=== PATIENT | male | born 1995 | race Caucasian/White ===

== ENCOUNTER 2020-05-27 15:30 | Outpatient (REF) | payer OTHER, SELFPAY | END 2020-05-27 15:31 | disposition home or self-care (01) | LOC: HO.LAB 15:30 | PROVIDERS: Visit Provider Internal Medicine | DX: Z20.822 Contact with and (suspected) exposure to COVID-19 (principal) | CPT/HCPCS: 36415; C9803; U0003; U0005 ==

== ENCOUNTER 2024-06-07 14:02 | Emergency (ER) | payer OTHER, SELFPAY ==
[2024-06-07 14:08] VITALS: BP 123/94; PULSE 110; RESP 18; TEMP 36.7; O2SAT 98; BMI 33.6
--- NOTE | 2024-06-07 14:20 | ED_ITS ---
HPI - General Adult General Chief complaint: GI Bleed Stated complaint: hemorrhoids rupture Time Seen by Provider: 06/07/24 16:45 Source: patient Mode of arrival: ambulatory Limitations: no limitations History of Present Illness ED Provider: Otoniel Hannon DO HPI narrative: 28-year-old male with no significant past medical or surgical history with the exception of hemorrhoids in the past presents to the ED for an evaluation of several days of intermittent bleeding per rectum with bowel movements and without bowel movements which improved yesterday but then worsened again today. He has had mild discomfort with moving his bowels but no severe pain. He has had some hard stools recently. He had diarrhea yesterday with some burning with it. He has not had any vomiting or nausea. He has not seen a colorectal surgeon. He has not had any trauma or sex with men. He describes that the bleeding is covering his underwear but is not continuing in gross amounts that he can quantify. It is bright red. He is not on blood thinners. Related Data Allergies Allergy/AdvReac Type Severity Reaction Status Date / Time No Known Allergies Allergy Verified 06/07/24 14:10 Review of Systems 2 Review of Systems: Yes all other systems are reviewed and are negative [facility] Social History Social History Smoked in Last 30 Days: No Advance Directives: No Advance Directives Information Provided: Yes Advance Directives on File: No Physical Exam ED Vital Signs: Vital Signs - 24 hr 06/07/24 14:08 06/07/24 16:47 Temperature 98.0 F 98.5 F Pulse Rate 110 H 61 Respiratory Rate 18 20 Blood Pressure 123/94 H 111/70 Pulse Oximetry 98 98 Oxygen Delivery Method Room Air Room Air BMI result Body Mass Index 33.6 Constitutional: ?Alert, oriented, speaking in full sentences HEENT: ?Normocephalic, atraumatic. Eyes: ?PERRL, EOMI Respiratory: no increased work of breathing GI: ?Soft, nondistended, nontender, rectal exam shows a small hemorrhoid located over the 8 o'clock position with no active bleeding. This is mildly painful. There is no bright red blood or melena noted her exam nor in the patient's briefs. Back: ?Normal range of motion, nontender Skin: ?No rash, no lesions Neuro: ?Alert and oriented to person, place and time, moves all 4 extremities, no focal deficits Psych: ?Calm, alert and cooperative, appropriate behavior Course Course Course Narrative: RME, this is a rapid medical exam performed by Edgar Juarez please refer to primary provider for complete H&P- 28-year-old male presents for evaluation of rectal bleeding which is bright red. He reports a history of hemorrhoids and believes 1 ?ruptured. ? Plan for labs and direct observation Medical Decision Making Medical Decision Making MDM Narrative: Patient presenting with signs and symptoms consistent with a currently nonbleeding, nonthrombosed external hemorrhoid. Unlikely to be internal hemorrhoid due to the discomfort on exam. Labs unremarkable, no anemia, no systemic symptoms. Discussed with the patient important to follow up with a primary care provider at possible colorectal surgeon if he has continued bleeding for further evaluation. Patient will administer preparation H at home for further care and return with any persistent bleeding. Lab Data 06/07/24 14:22 06/07/24 14:22 Labs: Lab Results 06/07/24 Range/Units 14:22 WBC 6.8 (4.8-10.8) X10*3/uL RBC 5.88 H (4.60-5.80) X10*6/uL Hgb 17.0 (14.0-18.0) g/dl Hct 50.0 (42.0-52.0) % MCV 85.0 (80.0-98.0) fL MCH 28.9 (27.0-33.0) pg MCHC 34.0 (31.0-36.0) g/dl RDW 12.5 (11.0-16.0) % Plt Count 284 (160-400) X10*3/uL MPV 10.1 (9.4-12.4) fL Immature Gran % (Auto) 0.3 (0.0-0.4) % Neut % (Auto) 56.0 (45-73) % Lymph % (Auto) 33.0 (20-40) % [place] % (Auto) 5.9 (2-11) % Eos % (Auto) 4.4 H (0-4) % Baso % (Auto) 0.4 (0-2) % Lymph # (Auto) 2.2 (1.2-4.9) X10*3/uL [place] # (Auto) 0.4 (0.1-1.2) X10*3/uL Eos # (Auto) 0.3 (0.0-0.4) X10*3/uL Baso # (Auto) 0.0 (0.0-0.2) X10*3/uL Abs Immat Gran (auto) 0.02 (0.00-0.03) X10*3/uL Absolute Neuts (auto) 3.8 (2.0-8.3) x10*3/uL Absolute Nucleated RBC 0.000 (0.0-0.012) X10*3/uL Nucleated RBC % (auto) 0.0 (0.0-0.2) /100WBC Sodium 140 (135-145) mmol/L Potassium 4.0 (3.3-5.1) mmol/L Chloride 111 H (96-108) mmol/L Carbon Dioxide 24 (22-29) mmol/L Anion Gap 9 L (12-20) BUN 17 H (9-16) mg/dL Creatinine 1.06 (0.5-1.4) mg/dL Estim Creat Clear Calc 140.8 Estimated GFR > 60 Random Glucose 87 (60-115) mg/dL Calcium 9.3 (8.4-10.2) mg/dL Total Bilirubin 0.7 (0.0-1.0) mg/dL AST 55 H (5-37) U/L ALT 42 H (0-40) U/L Alkaline Phosphatase 54 (39-117) U/L Total Protein 7.2 (6.5-8.0) g/dL Albumin 4.6 (3.5-5.0) g/dL Discharge Plan Discharge Clinical Impression: Hemorrhoids Qualifiers: Hemorrhoid type: unspecified Qualified Code(s): K64.9 - Unspecified hemorrhoids Patient Disposition: Home, Self-Care Instructions: Hemorrhoids (ED) Additional Instructions: Please follow up with a PCP and GI doc or colorectal surgeon if bleeding persists. Return with any concerns or profuse bleeding. Referrals: [facility] Family Medicine [Provider Group] Stand Alone Forms: Work/School Release Print Language: Romansh
[2024-06-07 14:27] LABS: MANUAL DIFF FLAG NO
[2024-06-07 14:28] LABS: Basophils Percent Auto 0.4 % (0-2); Eosinophils Absolute Auto 0.3 X10*3/uL (0.0-0.4); Eosinophils Percent Auto 4.4 % (0-4); Imm Gran Abs Auto 0.02 X10*3/uL (0.00-0.03); Imm Gran Pct Auto 0.3 % (0.0-0.4); Lymphocytes Absolute Auto 2.2 X10*3/uL (1.2-4.9); Mean Corpuscular Hemoglobin 28.9 pg (27.0-33.0); Mean Platelet Volume 10.1 fL (9.4-12.4); Monocytes Absolute Auto 0.4 X10*3/uL (0.1-1.2); Monocytes Percent Auto 5.9 % (2-11); Neutrophils Absolute Auto 3.8 x10*3/uL (2.0-8.3); Platelet Count 284 X10*3/uL (160-400); Red Blood Count 5.88 X10*6/uL (4.60-5.80); Red Cell Distribution Width 12.5 % (11.0-16.0); White Blood Count 6.8 X10*3/uL (4.8-10.8)
[2024-06-07 14:42] LABS: Alanine Aminotransferase 42 U/L (0-40); Albumin Level 4.6 g/dL (3.5-5.0); Alkaline Phosphatase 54 U/L (39-117); Anion Gap 9 (12-20); Aspartate Amino Transferase 55 U/L (5-37); Bilirubin Total 0.7 mg/dL (0.0-1.0); Blood Urea Nitrogen 17 mg/dL (9-16); Calcium 9.3 mg/dL (8.4-10.2); Carbon Dioxide 24 mmol/L (22-29); Chloride 111 mmol/L (96-108); Creatinine Clr Calc Pharmacy 140.8; Estimated Glomerular Filt Rate > 60; Glucose Random 87 mg/dL (60-115); Sodium 140 mmol/L (135-145); Total Protein 7.2 g/dL (6.5-8.0)
[2024-06-07 16:47] VITALS: BP 111/70; PULSE 61; RESP 20; TEMP 36.9; O2SAT 98
--- OUTSIDE RECORDS SUMMARY | 2024-06-07 17:39 | XMS_ITS | Clinical Summary ---
Author Organization [facility] Address [address] [place] [address] Phone Care Team Providers Care Sales Contracts Analyst Name Role Phone Unavailable Primary Care Provider Unavailabl e Allergies No known active allergies Medications albuterol HFA (PROAIR HFA) 108 (90 BASE) MCG/ACT inhaler 108 mcg as needed. Active amphetamine-dextro amphetamine XR 20 MG 24 hr capsuleIndications :ADHD (attention deficit hyperactivity disorder), combined type Take 1 capsule (20 mg total) by mouth every morning. 30 capsule 7 Active Active Problems Patient Care Coordination No te Formatting of this note migh t be different from the original. 01/14/18- [id number] letter sent Problem Noted Date Diagnosed Date Substance abuse 03/20/2016 Tourette's 01/08/2016 Anxiety 02/05/2015 Assessment & Plan (01/22/2017 8:37 AM EST): Has stopped taking sertraline, Feels better without it. It made him feel weird but I am not sure if that was because he stopped it and then started it. Can observe for now but I do have concerns that these symtpoms could return Allergic rhinitis 11/23/2014 Attention-deficit hyperactivity disorder, combin ed type 11/07/2014 Assessment & Plan (01/22/2017 8:37 AM EST): Doing well with current medication Mild intermittent asthma, uncomplicated 10/26/19 15 Sebaceous cyst 04/24/2013 Resolved Problems Problem Noted Date Diagnosed Date Resolved Date Depression 05/25/2016 01/22/2017 Immunizations Immunization Administration Dates Next Due DTaP 11/22/1998, 7,04/05/1995,02/15,1994 HPV Vaccine 9 Valent 03/20/2016,02/05/2015 HPV, Quadrivalent 01/20/2014 Hep B, ped/adol 08/02/1995,1994,1994 Hib (PRP-T) 01/31/1996, 6,02/15/1995,12/20 IPV 11/22/1998 Influenza, injectable, quadr ivalent, preservative free 03/20/2016,01/20/2014 Influenza, injectable, trivalent 11/25/2009 Influenza, intranasal, quadrivalent 02/05/2015 MMR 09/10/1999,01/31/1996 Meningococcal Conj (Menactra) MCV4P 01/20/2014,0 10/22/2006 OPV 04/05/1995,02/15/1995,1994 Td (adult) (MBL), 2 Lf tetan us toxoid, PF, adsorbed 03/20/2016 Tdap 10/22/2006 Varicella 05/31/1995 Social History Tobacco Use Types Packs/Day Years Used Date Smoking Tobacco: Never Assessed Sex and Gender Information Value Date Recorded Sex Assigned at Not on file Legal Sex Male 11:11 PM EST Gender Identity Not on file Sexual Orientation Not on file Last Filed Vital Signs Vital Sign Reading Time Taken Comments Blood Pressure 111/64 01/22/2017 8:06 AM EST Pulse 55 01/22/2017 8:06 AM EST Temperature 37 ??C (98.6 ??F) 01/13/2016 12:00 AM EST Respiratory Rate - - Oxygen Saturation 98% 02/19/2010 12:00 AM EST Inhaled Oxygen Concentration - - Weight 92.5 kg (204 lb) 01/22/2017 8:06 AM EST Height 185.4 cm (6' 1 ) 01/22/2017 8:06 AM EST Body Mass Index 26.91 01/22/2017 8:06 AM EST Plan of Treatment Health Maintenance Due Date Last Done Comments Hepatitis B Vaccines (3 of 3 - 3-dose series) 09/27/1995 08/02/1995, 1994, 1994 Varicella Vaccines (1 of 2 - 13+ 2-dose series) 03/05/2015 05/31/1995 Influenza Vaccines (#1) 2023 03/20/19 17, 02/05/2015, 01/20/2014, Additional history exists COVID-19 Vaccine ( - 2023- season) 2023 DTaP,Tdap,and Td Vaccines (8 - Td or Tdap) 03/20/2026 03/20/2016, 10/22/2006, 11/22/1998, Additional history exists HIB Vaccines Completed 01/31/1996, 06/1995, 02/15/1995, Additional history exists IPV Vaccines Completed 11/22/1998, 06/1995, 02/15/1995, Additional history exists MMR Vaccines Completed 09/10/1999, 01/31/1996 Meningococcal Vaccine Aged Out 01/20/2014, 007 No longer eligible based on patient's age to complete this topic HPV Vaccines Completed 03/20/2016, 09/2014, 01/20/2014 Hepatitis A Vaccines Aged Out No long er eligible based on patient's age to complete this topic Men B Vaccine Aged Out No longer elig ible based on patient's age to complete this topic Pneumococcal Vaccine Aged Out No long er eligible based on patient's age to complete this topic
--- OUTSIDE RECORDS SUMMARY | 2024-06-07 17:39 | XMS_ITS | Encounter Summary ---
Author Organization [facility] Address [address] [place] [id number] Phone Care Team Providers Care Boat Cleaner Name Role Phone Abdullahi Chase MD Primary Care Provider [phone] Encounter Details Date Type Department Care Team (Late st Contact Info) Description 10/07/2016 Conversion Encounter [facility] Pediatric[facility] - [address], [address] [place] [address] Abdullahi Chase MD [address] [place] [id number] Social History Tobacco Use Types Packs/Day Years Used Date Smoking Tobacco: Never Assessed Sex and Gender Information Value Date Recorded Sex Assigned at Not on file Legal Sex Male 11:11 PM EST Gender Identity Not on file Sexual Orientation Not on file documented as of this encounter Plan of Treatment Not on file documented as of this encounter Visit Diagnoses Not on filedocumented in this encounter Care Teams Boat Cleaner Relationship Specialty Start Date End Date Abdullahi Chase MD [address] [place] [address] PCP - General 04/21/16 09/15/20 documented as of this encounter
[2024-06-07 17:51] VITALS: BP 111/70; PULSE 61; RESP 20; TEMP 36.9; O2SAT 98
== END 2024-06-07 17:55 | disposition home or self-care (01) ==
PROVIDERS: Emergency Provider Emergency Medicine
DX: K64.9 Unspecified hemorrhoids (principal); K92.2 Gastrointestinal hemorrhage, unspecified; R19.7 Diarrhea, unspecified
CPT/HCPCS: 36415; 80053; 85025; 99283; 99284

== ENCOUNTER 2024-07-11 14:32 | Outpatient (AMB) | payer OTHER, SELFPAY ==
--- NOTE | 2024-07-11 14:52 | MHC.PC.OV ---
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 Prior PCP? - [facility] Last office visit/CPE/labs - About 5 years ago Acute issue(s) - He was evaluated at [facility] on 06/07/2024 for bright red blood rectal bleeding with and without defecation. Labs were reassuring. The source of bleeding was deemed likely internal hemorrhoids. He was advised to follow-up with PCP and Gastroenterology. He notes that his rectal bleeding completely subsided about a week ago. - Anxiety and depression. He notes that sometimes i get overwhelmed with myself because of life stressors including paying his bills and not having enough money for food and other things. He was feeling down last week for a few days. He was on zoloft between 2021 and 2022. He stopped the medications due to increased suicidality. He was followed by a therapist in high school. He denies history of psychiatric admissions. He denies active SI. He denies HI and AVH. He denies yulissa or hypomaina episodes. Past Medical History - Hypertension, asthma, GERD, headache, torn ACL, anxiety, depression, alcoholism Surgical History - None Family History - Dad: Hypertension, hypercholesterolemia, alcohol abuse - Mom: Asthma, anxiety - MGM: Breast cancer, thyroid cancer - MGF: Lung cancer, colon cancer Social History - Former smoker. Vapes nicotine multiple times daily, equivalent of 1 pack daily, and has been vaping for about 8 years, Drinks 1 beer and a glass of whiskey daily and 6-8 beers every other week with friends. Smoke/vap cannabis 3-4 times week - Has been making healthy dietary choices. Exercises routinely. Reports insomnia since he was 7 years old. Sleeps 3-4 hours nightly due to constant thoughts related to work, personal life, or that someone is breaking into his apartment. Unsure if he snores or not; he lives alone Health maintenance - Last eye exam was about 10 years ago - Last dental visit was 2 months ago - Last tetanus vaccine was in 2021. Record not currently available - Has not been vaccinated for the flu this season; declines vaccination [facility] Medical History (Updated 07/11/24 @ 16:11 by Junie Lo CNP) Alcoholism Depression Anxiety Headache History of gastroesophageal reflux (GERD) Torn ACL High blood pressure Asthma Surgical History (Updated 07/11/24 @ 15:05 by Windy Pope MA) S/P wisdom tooth extraction Family History (Updated 07/11/24 @ 15:09 by Windy Pope MA) Father Alcohol abuse High blood pressure High cholesterol Paternal Grandfather Alcohol abuse High blood pressure High cholesterol Mother Anxiety Asthma Sister Anxiety Maternal Grandmother Thyroid disorder Breast cancer Maternal Grandfather Colon cancer Lung cancer Social History (Updated 07/11/24 @ 15:00 by Windy Pope MA) Housing: Apartment Patient Tobacco Use Status: Never used Tobacco e-Cigarette/Vaping Use: Currently Using Second Hand Smoke Exposure: No Substance Use Type: Marijuana service: No Current occupational status: employed 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 1. Little interest or pleasure in doing things: more than half the days 2. Feeling down, depressed, or hopeless: more than half the days 3. Trouble falling or staying asleep, or sleeping too much: nearly every day 4. Feeling tired or having little energy: nearly every day 5. Poor appetite or overeating: nearly every day 6. Feeling bad about yourself - or that you are a failure or have let yourself or your family down: nearly every day 7. Trouble concentrating on things, such as reading the newspaper or watching television: nearly every day 8. Moving or speaking so slowly that other people could have noticed. Or the opposite - being so fidgety or restless that you have been moving around a lot more than usual: nearly every day 9. Thoughts that you would be better off or of hurting yourself in some way: more than half the days Total score: 24 Depression Screening Interpretation: Positive Depression Screening Done: Yes 37324 - PHQ-9 Billing: Yes Source: Developed by Drs. Du Simons, Aicha Anaya, Sandro Almanza and colleagues, with an educational cristobal from [employer]. Thrive Questionnaire Date Thrive assessed: 07/11/24 I am a: Patient What is your living situation today?: I have a steady place to live Within the past 12 months, did the food you bought not last and you didn't have the money to get more?: Sometimes True Within the past 12 months, did you worry whether your food would run out before you got money to buy more?: Often true Do you have trouble paying for medicines?: No Do you have trouble getting transportation to medical appointments?: No Do you have trouble paying your heating and electricity bill?: No Do you have trouble taking care of your child, family member or friend?: No Do you have trouble with day-to-day activities such as bathing, preparing meals, shopping, managing finances, etc.?: Yes Are you currently unemployed and looking for a job?: No Are you interested in more education?: Yes Please select the resources that you would like help with: None Currently or been in a relationship where the following occur: Controlled Financially and Controlled Emotionally THRIVE Score: 4 AUDIT C Alcohol Use Questionnaire (AUDIT-C) 1. How often do you have a drink containing alcohol?: 2-3 times a week 2. How many drinks containing alcohol do you have on a typical day when you are drinking?: 5 or 6 3. How often do you have six or more drinks on one occasion?: Weekly Total Score: 8 Score Reviewed/Action Taken: Yes GELY-7 AMB Questionnaire GELY-7 Date GELY - 7 assessed: 07/11/24 Feeling nervous, anxious, or on edge: 3 = Nearly every day Not being able to stop or control worryin = Nearly every day Worrying too much about different things: 3 = Nearly every day Trouble relaxin = Nearly every day Being so restless that it is hard to sit still: 3 = Nearly every day Becoming easily annoyed or irritable: 3 = Nearly every day Feeling afraid as if something awful might happen: 3 = Nearly every day Total GELY-7 score (0-4 normal; 5-9 mild; 10-14 moderate; 15-21 severe): 21 Source: Developed by Drs. Du Simons, Aicha Anaya, Sandro Almanza and colleagues, with an educational cristobal from [employer]. GELY-7 Assessment Billing GELY-7 Assessment Tool: GELY-7 Assessment 37488 Review of Systems Const Details: Denies chills, Denies fatigue, Denies fever(s), Denies headache(s) and Denies weakness HEENT Denies change in vision, Denies dizziness, Denies headache(s), Denies hearing loss, Denies nasal congestion, Denies sinus pain, Denies sinus pressure and Denies sore throat Card Denies chest pain, Denies lightheadedness, Denies dyspnea and Denies other (palpitations) Resp Denies cough, Denies dyspnea and Denies wheezing GI Denies abdominal pain, Denies melena, Denies hematochezia, Denies change in bowel habits, Denies dyspepsia and Denies nausea Denies hematuria and Denies dysuria Musc Denies abnormal gait, Denies myalgias, Denies arthralgias, Denies numbness and Denies tingling Skin/Breast Denies rash, Denies unusual bruising and Denies wounds Neuro Denies abnormal gait, Denies dizziness, Denies headache(s), Denies memory loss, Denies numbness, Denies Sensory deficit (Neuro), Denies tingling and Denies weakness Psych Reports anxiety, Reports depression and Denies memory loss Endo Denies cold intolerance, Denies fatigue, Denies heat intolerance, Denies polydipsia and Denies polyuria Bakari/Lymph Denies easy bleeding and Denies easy bruising Aller/Immun Denies wheezing Physical exam (Primary Care) Vital Signs: Last Vital Signs Temp 98.6 F 07/11/24 15: Pulse 80 07/11/24 15:01 Resp 16 07/11/24 15:01 BP 126/73 07/11/24 15:01 Pulse Ox 98 07/11/24 15:01 Oxygen Delivery Method Room Air 07/11/24 15:01 BMI result Body Mass Index 34.4 Tobacco/Smoking Status: Tobacco use Status Tobacco use date assessed 07/11/24 07/11/24 15:00 Patient Tobacco Use Status Never used Tobacco 07/11/24 15:00 e-Cigarette/Vaping Use Currently Using 07/11/24 15:00 PHQ-9: PHQ-9 Score PHQ-9: Total score 24 07/11/24 15:00 Depression Screening Interpretation: Positive Thrive Assessment: Date of Thrive Assessment Date Thrive assessed 07/11/24 07/11/24 15:00 Currently or been in a relationship where the following occur: Controlled Financially and Controlled Emotionally Const Other: General: no acute distress, well developed, alert and awake Nutritional Appearance: well nourished Orientation/consciousness: patient oriented x3 HENMT Head: Yes normocephalic and Yes atraumatic Ears: hearing grossly normal bilaterally and TM's normal bilaterally General nose exam: Normal external nose present and Normal nares present Mouth: Normal oral and palatal mucosa present and moist mucous membranes Teeth and gingiva: dentition normal Throat: Yes oropharynx normal Eyes Pupils: Equal, round and reactive pupils present and Pupil accommodation reflex normal EOM: EOMs intact bilaterally Neck Neck: Yes normal visual inspection, Yes no lymphadenopathy and Yes trachea midline Thyroid: Thyroid normal Carotids: no bruits Lymphatic: no lymphadenopathy noted Chest Chest palpation & inspection: normal inspection of the chest Resp Effort & Inspection: normal respiratory effort Auscultation: clear to auscultation bilaterally Cardio Rate: regular rate Rhythm: regular rhythm Heart sounds: S1 normal heart sound present, S2 normal heart sound present, no gallops, no murmurs and no rubs Bruits: no abdominal aortic bruits and no carotid bruits GI Palpation (GI): No Abdominal aortic bruit present, Soft to palpation, nontender, No hepatosplenomegaly present and No Rebound tenderness present Auscultation: normal bowel sounds General: Yes no CVA tenderness Back/Spine/Pelvis Back: no CVA tenderness Cervical Spine: cervical ROM normal and No Cervical spine tenderness Thoracic/Lumbar Spine: thoraco-lumbar ROM normal, No pain with thoraco-lumbar ROM, No thoracic spinal tenderness and No lumbar spinal tenderness Skin General: warm and dry. Normal skin color. Normal skin turgor Lesions: no lesions Rashes: no rashes Trauma: no lacerations or abrasions Wounds: no wounds Nails: normal Neuro General: patient oriented x3, gait normal and CN's II-XI intact bilaterally Cranial nerves: Yes Equal, round and reactive pupils present Cognition (Neuro): normal cognition Gait exam (Neuro): Normal gait present Motor exam (neuro): 5/5 motor strength present throughout Sensory Exam: No Sensory deficit (Neuro) Deep tendon reflexes (DTR's): Right patellar reflex intensity grade: 2+ and Left patellar reflex intensity grade: 2+ Extrem General: Yes normal to inspection, No edema and No calf tenderness Psych Appearance: grossly normal Affect: normal affect Attitude: cooperative Thought process: Normal thought process present Coding Level of Care Code New Pt Level 5 (53685) New Pt Prev Care 18-39yr(77166 Diagnoses Normal physical examination, routine Z00.00 Anxiety F41.9 Depression F32.A Insomnia G47.00 Obesity (BMI 30-39.9) E66.9 Engages in vaping Z72.89 Eye exam, routine Z01.00 Rectal bleeding K62.5 Colon cancer screening Z12.11 Laboratory tests ordered as part of a complete physical exam (CPE) Z00.00 Additional Codes GELY-7 Assessment Billing - GELY-7 Assessment Tool: GELY-7 Assessment 36825 ([id number]) PHQ-9 - 84524 - PHQ-9 Billing: Yes ([id number]) Assessment & Plan Assessment & Plan (1) Normal physical examination, routine: Code(s): Z00.00 - Encounter for general adult medical examination without abnormal findings Category: Medical Plan: No significant functional limitation noted. Healthy diet and routine exercise encouraged. Instructed on the health risks and complications of excessive alcohol intake and encouraged to cut down or stop. No more than 2 drinks daily of 5 weekly. Perform lab work and follow-up in 2 weeks for anxiety, depression, and labs review. Return sooner with symptoms or concerns. Verbalized understanding and agreed with the plan. (2) Anxiety: Code(s): F41.9 - Anxiety disorder, unspecified Category: Medical Plan: Anxiety and depression. He notes that sometimes i get overwhelmed with myself because of life stressors including paying his bills and not having enough money for food and other things. He was feeling down last week for a few days. He was on zoloft between 2021 and 2022. He stopped the medications due to increased suicidality. He was followed by a therapist in high school. He denies history of psychiatric admissions. He denies active SI. He denies HI and AVH. He denies yulissa or hypomaina episodes. Reports insomnia since he was 7 years old. Sleeps 3-4 hours nightly due to constant thoughts related to work, personal life, or that someone is breaking into his apartment. Unsure if he snores or not; he lives alone. PHQ-9 and GELY-7 scores revealed severe depression and anxiety. He is willing to trial bupropion. Bupropion 150 mg daily ordered to target depression and hydroxyzine 25 mg 3 times daily as needed ordered to take it anxiety. Sleep may improve once anxiety and depression are well controlled. Routine exercise encouraged. Follow-up in 2 weeks or sooner with worsening or new symptoms. Verbalized understanding and agreed with treatment plan. (3) Depression: Code(s): F32.A - Depression, unspecified Category: Medical Plan: Plan as above. (4) Insomnia: Code(s): G47.00 - Insomnia, unspecified Category: Medical Plan: Plan as above. (5) Obesity (BMI 30-39.9): Code(s): E66.9 - Obesity, unspecified Category: Medical Plan: He currently weighs 268 lb, BMI is 34.4. Declines referral to dietitian/clinical data management manager or weight management at this time and notes that he will continue with healthy lifestyle changes. Healthy diet and routine exercise encouraged. Follow-up as needed. Verbalized understanding and agreed with the plan. (6) Engages in vaping: Code(s): Z72.89 - Other problems related to lifestyle Category: Medical Plan: He vapes nicotine multiple times daily, equivalent of 1 pack daily, and has been vaping for about 8 years. Instructed on the health risks and complications of vaping and nicotine and cessation encouraged. He is willing to try nicotine treatment for nicotine cessation. Nicotine patch ordered. Advised to use as prescribed. Encouraged to stop or cut down on vaping nicotine at initiation of nicotine treatment. Follow-up as needed. Verbalized understanding and agreed with the plan. (7) Eye exam, routine: Code(s): Z01.00 - Encounter for examination of eyes and vision without abnormal findings Category: Medical Plan: Last eye exam was about 10 years ago. Referred to Ophthalmology for routine eye exam. (8) Rectal bleeding: Code(s): K62.5 - Hemorrhage of anus and rectum Category: Medical Plan: He was evaluated at [facility] on 06/07/2024 for bright red blood rectal bleeding with and without defecation. Labs were reassuring. The source of bleeding was deemed likely internal hemorrhoids. He was advised to follow-up with PCP and Gastroenterology. He notes that his rectal bleeding completely subsided about a week ago. His maternal grandfather has history of colon cancer. Referred to [facility] gastroenterology for a colonoscopy. (9) Colon cancer screening: Code(s): Z12.11 - Encounter for screening for malignant neoplasm of colon Category: Medical Plan: Plan as above. (10) Laboratory tests ordered as part of a complete physical exam (CPE): Code(s): Z00.00 - Encounter for general adult medical examination without abnormal findings Category: Medical Plan: Fasting labs ordered as part of a complete physical exam. Advised to fast for at least 10 hours before getting labs drawn. May drink water Verbalized understanding and agreed with treatment plan. Plan Total time for this visit is 75 mins. 50 minutes with patient and 25 minutes reviewing, coordinating plan of care, and documenting. Orders: Orders TSH reflex Free T4 Today Z00.00 - Encounter for general adult medical examination without abnormal findings Vitamin D 25-OH Total Today Z00.00 - Encounter for general adult medical examination without abnormal findings Microalbumin, Random (w Creat) Today Z00.00 - Encounter for general adult medical examination without abnormal findings Lipid Panel Today Z00.00 - Encounter for general adult medical examination without abnormal findings UA CC w/rflx Micro + Cult Today Z00.00 - Encounter for general adult medical examination without abnormal findings Liver Panel Today Z00.00 - Encounter for general adult medical examination without abnormal findings Complete Blood Count no Diff Today K62.5 - Hemorrhage of anus and rectum Referrals Ophthalmology Referral Z01.00 - Encounter for examination of eyes and vision without abnormal findings Gastroenterology Referral K62.5 - Hemorrhage of anus and rectum, Z12.11 - Encounter for screening for malignant neoplasm of colon Medications: New hydroxyzine HCl 25 mg PO TID PRN 90 tabs 3RF anxiety bupropion HCl XL 150 mg PO QAM 30 days 30 tabs 3RF nicotine 1 patch transdermal DAILY 6 weeks 42 ea 1RF
[2024-07-11 15:01] VITALS: BP 126/73; PULSE 80; RESP 16; TEMP 37; O2SAT 98; BMI 34.4
--- OUTSIDE RECORDS SUMMARY | 2024-07-11 15:42 | XMS_ITS | Clinical Summary ---
Author Organization [facility] Address [address] [place] [address] Phone Care Team Providers Care Anode Adjuster Name Role Phone Unavailable Primary Care Provider [...]
--- OUTSIDE RECORDS SUMMARY | 2024-07-11 15:42 | XMS_ITS | Encounter Summary ---
Author Organization [facility] Address [address] [place] [phone] Phone Care Team Providers Care Chief Media Officer Name Role Phone Abdullahi Chase MD Primary Care Provider [phone] Encounter Details Date Type Department Care Team (Late st Contact Info) Description 10/07/2016 Conversion Encounter [facility] - [address], [address] [place] [address] Abdullahi Chase MD [address] [place] [id number] Social History Tobacco Use Types Packs/Day Years [...] on filedocumented in this encounter Care Teams Chief Media Officer Relationship Specialty Start Date End Date Abdullahi Chase MD [address] [place] [address] PCP - General 04/21/16 09/15/20 documented as of this encounter
== END 2024-07-11 15:57 | disposition home or self-care (01) ==
LOC: HO.HMCFM 14:33
PROVIDERS: PCP Nurse Practitioner Family; Visit Provider Nurse Practitioner Family
DX: Z00.00 Encounter for general adult medical examination without abnormal findings (principal); F41.9 Anxiety disorder, unspecified; E66.9 Obesity, unspecified; Z68.34 Body mass index [BMI] 34.0-34.9, adult; F32.A Depression, unspecified; G47.00 Insomnia, unspecified; Z72.89 Other problems related to lifestyle; K62.5 Hemorrhage of anus and rectum; Z12.11 Encounter for screening for malignant neoplasm of colon

== ENCOUNTER → 2024-07-11 14:32 | Outpatient (BNVA) | payer OTHER, SELFPAY | PROVIDERS: Visit Provider Nurse Practitioner Family | DX: Z00.00 Encounter for general adult medical examination without abnormal findings (principal); F41.9 Anxiety disorder, unspecified; F32.A Depression, unspecified; G47.00 Insomnia, unspecified; E66.9 Obesity, unspecified; Z68.34 Body mass index [BMI] 34.0-34.9, adult; K62.5 Hemorrhage of anus and rectum; Z72.89 Other problems related to lifestyle | CPT/HCPCS: 96127 ==

== ENCOUNTER 2024-07-26 08:22 | Outpatient (REF) | payer OTHER, SELFPAY ==
--- OUTSIDE RECORDS SUMMARY | 2024-07-26 08:38 | XMS_ITS | Encounter Summary ---
Author Organization [facility] Address [address] [place] [id number] Phone Care Team Providers Care Mri Special Procedures Technologist Name Role Phone Abdullahi Chase MD Primary Care Provider [phone] Encounter Details Date Type Department Care Team (Late st Contact Info) Description 10/07/2016 Conversion Encounter [facility] - [address], [address] [place] [address] Abdullahi Chase MD [address] [place] [id number] Social History Tobacco Use Types Packs/Day Years [...] on filedocumented in this encounter Care Teams Mri Special Procedures Technologist Relationship Specialty Start Date End Date Abdullahi Chase MD [address] [place] [address] PCP - General 04/21/16 09/15/20 documented as of this encounter
[2024-07-26 11:18] LABS: Appearance Urine Clear; Color Urine Dark Yellow; Glucose Urine UA Negative (Negative); Leukocyte Esterase Urine Trace (Negative); Nitrite Urine Negative (Negative); PH 7.5 (5.0-9.0); Specific Gravity - Urine >= 1.030 (1.005-1.025); UMIC TRIGGER UACC YES; Urine Blood Negative (Negative); Urine Ketones Trace mg/dL (Negative); Urine Protein Trace mg/dL (Neg-Trace)
[2024-07-26 11:22] LABS: Bacteria Urine None Seen (None Seen); Hyaline Casts Urine 0-2 /LPF (0-2); RBC Urine 0-2 /HPF (0-2); Squamous Epithelial Cell Urine 0-2 /HPF (0-2); WBC Urine 0-5 /HPF (0-5)
[2024-07-26 11:27] LABS: Hematocrit 47.7 % (42.0-52.0); Hemoglobin 16.4 g/dl (14.0-18.0); Mean Corpuscular HGB Conc 34.4 g/dl (31.0-36.0); Mean Corpuscular Hemoglobin 29.4 pg (27.0-33.0); Mean Corpuscular Volume 85.5 fL (80.0-98.0); Mean Platelet Volume 10.3 fL (9.4-12.4); Platelet Count 285 X10*3/uL (160-400); Red Blood Count 5.58 X10*6/uL (4.60-5.80); Red Cell Distribution Width 12.4 % (11.0-16.0)
[2024-07-26 12:02] LABS: Alanine Aminotransferase 42 U/L (0-40); Albumin Level 4.6 g/dL (3.5-5.0); Alkaline Phosphatase 48 U/L (39-117); Aspartate Amino Transferase 38 U/L (5-37); Bilirubin Direct 0.4 mg/dL (0.0-0.5); Bilirubin Total 1.3 mg/dL (0.0-1.0); Cholesterol 193 mg/dL (<200); HDL Cholesterol 40 mg/dL (>40); LDL Cholesterol Calculated 116 mg/dL (<100); TSH reflex Free T4 1.89 uIU/mL (0.32-4.0); Triglycerides 189 mg/dL (<150); Vitamin D 25-OH Total 29.5 ng/mL (>30)
[2024-07-26 12:30] LABS: Creatinine Urine 404.16 mg/dL; Microalbum/Creatinine Ratio Ur 5.1 ug/mg cr (<30)
== END 2024-07-26 08:23 | disposition home or self-care (01) ==
LOC: HO.WFDLDS 08:22
PROVIDERS: Visit Provider Nurse Practitioner Family
DX: Z00.00 Encounter for general adult medical examination without abnormal findings (principal); K62.5 Hemorrhage of anus and rectum; Z13.6 Encounter for screening for cardiovascular disorders
CPT/HCPCS: 36415; 80061; 80076; 81001; 82043; 82306; 82570; 84443; 85027

== ENCOUNTER 2024-07-31 08:59 | Outpatient (AMB) | payer OTHER, SELFPAY ==
--- NOTE | 2024-07-31 09:00 | A.OFFPC_ITS ---
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: No Allergies No Known Allergies Allergy (Verified 07/31/24 09:12) Medication List - Last Reconciled 07/31/24 by Junie Lo CNP bupropion HCl XL 150 mg PO QAM 30 days hydroxyzine HCl 25 mg PO TID PRN nicotine 1 patch transdermal DAILY 6 weeks Tobacco use date assessed: 07/31/24 Dental Screening Dental Screen Date: 07/31/24 Did you have a dental visit in the last 12 months?: Yes Did you have a dental problem in the last 6 months where you did not have access to dental care?: No Was dental information given to patient?: Patient has dentist HPI HPI Comments History of Present Illness Details 28-year-old male presents for anxiety an d review of recent lab results. He admits to taking his medications as prescribed without adverse reactions. He does not take hydroxyzine regularly. Reports increased anxiety and depressive symptoms which he attributes to stressors from recent increase work demands. He has passive SI and notes that he would not be so stressed if he were not alive. He denies SI/HI contracts for safety. He generally makes healthy dietary choices. He has not exercise in the past 2 weeks. He cut down on drinking 2 weeks ago and has been drinking 2-3 beers 2 days weekly. He recently stopped vaping after using nicotine pouch. He did not use the nicotine patch ordered due to history of agitation on the patch. [facility] Medical History (Updated 07/31/24 @ 09:40 by Junie Lo CNP) Alcoholism Depression Anxiety Headache History of gastroesophageal reflux (GERD) Torn ACL High blood pressure Asthma Surgical History (Updated 07/11/24 @ 15:05 by Windy Pope MA) S/P wisdom tooth extraction Family History (Updated 07/11/24 @ 15:09 by Windy Pope MA) Father Alcohol abuse High blood pressure High cholesterol Paternal Grandfather Alcohol abuse High blood pressure High cholesterol Mother Anxiety Asthma Sister Anxiety Maternal Grandmother Thyroid disorder Breast cancer Maternal Grandfather Colon cancer Lung cancer Social History (Updated 07/11/24 @ 15:00 by Windy Pope MA) Housing: Apartment Patient Tobacco Use Status: Former Tobacco user Tobacco use type: Smokeless Tobacco e-Cigarette/Vaping Use: Currently Using Second Hand Smoke Exposure: No Substance Use Type: Marijuana service: No Current occupational status: employed 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 1. Little interest or pleasure in doing things: more than half the days 2. Feeling down, depressed, or hopeless: more than half the days 3. Trouble falling or staying asleep, or sleeping too much: nearly every day 4. Feeling tired or having little energy: several days 5. Poor appetite or overeating: more than half the days 6. Feeling bad about yourself - or that you are a failure or have let yourself or your family down: more than half the days 7. Trouble concentrating on things, such as reading the newspaper or watching television: more than half the days 8. Moving or speaking so slowly that other people could have noticed. Or the opposite - being so fidgety or restless that you have been moving around a lot more than usual: not at all 9. Thoughts that you would be better off or of hurting yourself in some way: more than half the days Total score: 16 Depression Screening Interpretation: Positive Depression Screening Follow-up: Ex isting condition and In treatment Depression Screening Done: Yes 62398 - PHQ-9 Billing: Yes Source: Developed by Drs. Du Simons, Aicha Anaya, Sandro Almanza and colleagues, with an educational cristobal from [employer] ([employer]). Thrive Questionnaire Date Thrive assessed: 07/31/24 I am a: Patient What is your living situation today?: I have a steady place to live Within the past 12 months, did the food you bought not last and you didn't have the money to get more?: Sometimes True Within the past 12 months, did you worry whether your food would run out before you got money to buy more?: Often true Do you have trouble paying for medicines?: No Do you have trouble getting transportation to medical appointments?: No Do you have trouble paying your heating and electricity bill?: No Do you have trouble taking care of your child, family member or friend?: No Do you have trouble with day-to-day activities such as bathing, preparing meals, shopping, managing finances, etc.?: Yes Are you currently unemployed and looking for a job?: No Are you interested in more education?: Yes Please select the resources that you would like help with: None THRIVE Score: 2 AUDIT C Alcohol Use Questionnaire (AUDIT-C) 1. How often do you have a drink containing alcohol?: 2-3 times a week 2. How many drinks containing alcohol do you have on a typical day when you are drinking?: 3 or 4 3. How often do you have six or more drinks on one occasion?: Never Total Score: 4 Score Reviewed/Action Taken: Yes GELY-7 AMB Questionnaire GELY-7 Date GELY - 7 assessed: 07/31/24 Feeling nervous, anxious, or on edge: 2 = More than half the days Not being able to stop or control worryin = Nearly every day Worrying too much about different things: 2 = More than half the days Trouble relaxin = Nearly every day Being so restless that it is hard to sit still: 1 = Several days Becoming easily annoyed or irritable: 1 = Several days Feeling afraid as if something awful might happen: 0 = Not at all Total GELY-7 score (0-4 normal; 5-9 mild; 10-14 moderate; 15-21 severe): 12 Source: Developed by Drs. Du Simons, Aicha Anaya, Sandro Almanza and colleagues, with an educational cristobal from [employer] ([employer]). GELY-7 Assessment Billing GELY-7 Assessment Tool: GELY-7 Assessment 26986 Review of Systems Const Details: Const Denies chills, Denies fatigue, Denies fever(s), Denies headache(s) and Denies weakness ENT Denies dizziness and Denies headache(s) Card Denies chest pain, Denies lightheadedness, Denies dyspnea and Denies other (Palpitations) Resp Denies cough, Denies dyspnea, Denies wheezing and Denies other ( shortness of breath) GI Denies abdominal pain, Denies melena, Denies hematochezia, Denies change in bowel habits, Denies dyspepsia and Denies nausea Denies hematuria and Denies dysuria Musc Denies abnormal gait, Denies myalgias, Denies arthralgias, Denies numbness and Denies tingling Skin/Breast Denies rash, Denies unusual bruising and Denies wounds Neuro Denies abnormal gait, Denies dizziness, Denies headache(s), Denies memory loss, Denies numbness, Denies Sensory deficit (Neuro), Denies tingling and Denies weakness Psych Reports anxiety, Reports depression, Denies memory loss Endo Denies cold intolerance, Denies fatigue, Denies heat intolerance, Denies polydipsia and Denies polyuria Aller/Immun Denies wheezing Physical exam (Primary Care) Vital Signs: Last Vital Signs Temp 97.9 F 07/31/24 09:04 Pulse 70 07/31/24 09:04 Resp 16 07/31/24 09:04 BP 126/77 07/31/24 09:04 Pulse Ox 98 07/31/24 09:04 Oxygen Delivery Method Room Air 07/31/24 09:04 BMI result Body Mass Index 34.6 Tobacco/Smoking Status: Tobacco use Status Tobacco use date assessed 07/31/24 07/31/24 09:09 Patient Tobacco Use Status Never used Tobacco 07/31/24 09:23 Tobacco use type Smokeless Tobacco 07/31/24 09:23 e-Cigarette/Vaping Use Currently Using 07/31/24 09:03 PHQ-9: PHQ-9 Score PHQ-9: Total score 16 07/31/24 09:23 Depression Screening Interpretation: Positive Depression Screening Follow-up: Existing condition and In treatment Thrive Assessment: Date of Thrive Assessment Date Thrive assessed 07/31/24 07/31/24 09:09 Const Other: General: no acute distress and well developed Nutritional Appearance: well nourished Orientation/consciousness: patient oriented x3 HENMT Head: Yes normocephalic and Yes atraumatic Eyes General: appearance normal, both eyes and all related structures Pupils: Equal, round and reactive pupils present EOM: EOMs intact bilaterally Resp Effort & Inspection: normal respiratory effort Auscultation: clear to auscultation bilaterally Cardio Rate: regular rate Rhythm: regular rhythm Heart sounds: S1 normal heart sound present, S2 normal heart sound present, no gallops, no murmurs and no rubs GI Palpation (GI): No Abdominal aortic bruit present, Soft to palpation, nontender, No hepatosplenomegaly present and No Rebound tenderness present Auscultation: normal bowel sounds General: Yes no CVA tenderness Back/Spine/Pelvis Back: no CVA tenderness Cervical Spine: cervical ROM normal and No Cervical spine tenderness Thoracic/Lumbar Spine: thoraco-lumbar ROM normal, No pain with thoraco-lumbar ROM, No thoracic spinal tenderness and No lumbar spinal tenderness Extrem General: Yes normal to inspection, No edema and No calf tenderness Skin General: warm and dry. Normal skin color. Normal skin turgor Neuro General: patient oriented x3, gait normal and no focal neuro deficit Cranial nerves: Yes Equal, round and reactive pupils present Cognition (Neuro): normal cognition Gait exam (Neuro): Normal gait present Sensory Exam: No Sensory deficit (Neuro) Psych Appearance: grossly normal Affect: normal affect Attitude: cooperative Thought process: Normal thought process present Coding Level of Care Code Est Pt Level 4 (40624) Diagnoses Anxiety F41.9 Depression F32.A Hyperlipidemia E78.5 Transaminitis R74.01 Hyperbilirubinemia E80.6 Vitamin D deficiency E55.9 Engages in vaping Z72.89 Additional Codes GELY-7 Assessment Billing - GELY-7 Assessment Tool: GELY-7 Assessment 62573 ([id number]) PHQ-9 - 53801 - PHQ-9 Billing: Yes ([id number]) Assessment & Plan Assessment & Plan (1) Anxiety: Code(s): F41.9 - Anxiety disorder, unspecified Category: Medical Plan: Reports increased anxiety and depressive symptoms which he attributes to stressors from recent increase work demands. He has passive SI and notes that he would not be so stressed if he were not alive. He denies SI/HI contracts for safety. PHQ-9 and GELY-7 scores revealed moderately severe depression and moderate anxiety respectively. Will increase bupropion 300 mg daily; advised to take as prescribed. Continue to take hydroxyzine as prescribed. Routine exercise encouraged. Follow-up in 2 weeks or sooner with symptoms or concerns. Verbalized understanding and agreed with treatment plan. (2) Depression: Code(s): F32.A - Depression, unspecified Category: Medical Plan: Plan as above. (3) Hyperlipidemia: Code(s): E78.5 - Hyperlipidemia, unspecified Category: Medical Plan: Recent triglycerides and LDL levels are elevated, 189 and 116 respectively, HDL is slightly low, 40. Likely related to poor diet or excessive alcohol intake. Healthy diet and routine exercise encouraged. Advised to cut down or avoid alcohol intake. No more than 2 drinks daily or 5 weekly. Fast for 10-12 hours, may drink water, and perform lipid panel blood work 2-3 days before next visit. Follow-up in 2 months. Verbalized understanding and agreed with the plan. (4) Transaminitis: Code(s): R74.01 - Elevation of levels of liver transaminase levels Category: Medical Plan: Recent AST and ALT levels a slightly elevated, 38 and 42 respectively. Likely related to poor diet or excessive alcohol intake. Plan as above. Will recheck panel in 2 months. (5) Hyperbilirubinemia: Code(s): E80.6 - Other disorders of bilirubin metabolism Category: Medical Plan: Recent bilirubin level is slightly elevated, 1.3. Likely related to alcoholic or nonalcoholic fatty liver disease. Plan as above. (6) Vitamin D deficiency: Code(s): E55.9 - Vitamin D deficiency, unspecified Category: Medical Plan: Recent vitamin-D level slightly low, 29.5. Vitamin D3 25 mcg daily ordered; advised to take as prescribed. Informed that the sun is a good source of vitamin-D. Will recheck vitamin-D level in 2 months. Verbalized understanding and agreed with the plan. (7) Engages in vaping: Code(s): Z72.89 - Other problems related to lifestyle Category: Medical Plan: He recently stopped vaping after using nicotine pouch. He did not use the nicotine patch ordered due to history of agitation on the patch. Encouraged to continue to avoid vaping. Orders: Orders Lipid Panel 2 Months E80.6 - Other disorders of bilirubin metabolism Liver Panel 2 Months E80.6 - Other disorders of bilirubin metabolism, R74.01 - Elevation of levels of liver transaminase levels Medications: New cholecalciferol (vitamin D3) (Vitamin D3) 25 mcg PO DAILY 90 days 90 tabs 3RF bupropion HCl XL 300 mg PO QAM 30 days 30 tabs 3RF Discontinued bupropion HCl XL Discontinued Reason: Doctor's Order 150 mg PO QAM 30 days 30 tabs 3RF
[2024-07-31 09:04] VITALS: BP 126/77; PULSE 70; RESP 16; TEMP 36.6; O2SAT 98; BMI 34.6
--- OUTSIDE RECORDS SUMMARY | 2024-07-31 09:29 | XMS_ITS | Encounter Summary ---
Author Organization [facility] Address [address] [place] [id number] Phone Care Team Providers Care Water Pumper Name Role Phone Abdullahi Chase MD Primary Care Provider [phone] Encounter Details Date Type Department Care Team (Late st Contact Info) Description 10/07/2016 Conversion Encounter [facility] - [address], [address] [place] [address] Abdullahi Chase MD [address] [place] [id number] Social History Tobacco Use Types Packs/Day Years [...] on filedocumented in this encounter Care Teams Water Pumper Relationship Specialty Start Date End Date Abdullahi Chase MD [address] [place] [address] PCP - General 04/21/16 09/15/20 documented as of this encounter
== END 2024-07-31 09:40 | disposition home or self-care (01) ==
LOC: HO.HMCFM 09:00
PROVIDERS: PCP Nurse Practitioner Family; Visit Provider Nurse Practitioner Family
DX: F41.9 Anxiety disorder, unspecified (principal); F32.A Depression, unspecified; E78.5 Hyperlipidemia, unspecified; R74.01 Elevation of levels of liver transaminase levels; E80.6 Other disorders of bilirubin metabolism; E55.9 Vitamin D deficiency, unspecified; Z72.89 Other problems related to lifestyle

== ENCOUNTER → 2024-07-31 08:59 | Outpatient (BNVA) | payer OTHER, SELFPAY | PROVIDERS: PCP Nurse Practitioner Family; Visit Provider Nurse Practitioner Family | DX: F41.9 Anxiety disorder, unspecified (principal); F32.A Depression, unspecified; E78.5 Hyperlipidemia, unspecified; R74.01 Elevation of levels of liver transaminase levels; E80.6 Other disorders of bilirubin metabolism; E55.9 Vitamin D deficiency, unspecified; Z72.89 Other problems related to lifestyle | CPT/HCPCS: 96127 ==

== ENCOUNTER 2024-08-21 13:24 | Outpatient (AMB) | payer OTHER, SELFPAY ==
--- NOTE | 2024-08-21 13:26 | MHC.PC.OV ---
Vital Signs 08/21/24 13:31 Height 6 ft 2 in Weight 270 lb BMI 34.7 BP 124/70 Blood Pressure Location Lt brachial Position Sitting Respiration 16 Pulse 73 Pulse Source Pulse Oximeter Temp 98.5 F Temp Source Oral Pulse Oximetry (%) 99 Oxygen Delivery Method Room Air Intake Visit Reasons: 2 wks anxiety, depression Intake Note: patient here for 2 wks follow up on anxiety and depression Quantity Surveyor Required: No Allergies No Known Allergies Allergy (Verified 08/21/24 13:43) Medication List - Last Reconciled 08/21/24 by Junie Lo CNP bupropion HCl XL 300 mg PO QAM 30 days cholecalciferol (vitamin D3) (Vitamin D3) 25 mcg PO DAILY 90 days hydroxyzine HCl 25 mg PO TID PRN Tobacco use date assessed: 08/21/24 Dental Screening Dental Screen Date: 08/21/24 Did you have a dental visit in the last 12 months?: Yes Did you have a dental problem in the last 6 months where you did not have access to dental care?: No Was dental information given to patient?: Patient has dentist HPI HPI Comments History of Present Illness Details 28-year-old male presents for anxiety and depression follow-up. He admits to taking his medications as prescribed without adverse reactions. He notes that his mood is better but has not improved much since his last visit. He is anxious about what is currently going around the world and reports from the news. He does not want WWIII to happened. Regarding PHQ-9 questionnaire, he notes that I won't feel this way if i wasn't alive. He denies SI or plan of committing suicide. He denies HI/AH/VH. He has been reading a book. He has not been able to exercise lately due to demands from his employer. He quit using nicotine including pouches 3 weeks ago. [facility] Medical History (Updated 07/31/24 @ 09:40 by Junie Lo CNP) Alcoholism Depression Anxiety Headache History of gastroesophageal reflux (GERD) Torn ACL High blood pressure Asthma Surgical History (Updated 07/11/24 @ 15:05 by Windy Pope MA) S/P wisdom tooth extraction Family History (Updated 07/11/24 @ 15:09 by Windy Pope MA) Father Alcohol abuse High blood pressure High cholesterol Paternal Grandfather Alcohol abuse High blood pressure High cholesterol Mother Anxiety Asthma Sister Anxiety Maternal Grandmother Thyroid disorder Breast cancer Maternal Grandfather Colon cancer Lung cancer Social History (Updated 07/11/24 @ 15:00 by Windy Pope MA) Housing: Apartment Patient Tobacco Use Status: Former Tobacco user Tobacco use type: Smokeless Tobacco e-Cigarette/Vaping Use: Currently Using Second Hand Smoke Exposure: No Substance Use Type: Marijuana service: No Current occupational status: employed 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 1. Little interest or pleasure in doing things: several days 2. Feeling down, depressed, or hopeless: more than half the days 3. Trouble falling or staying asleep, or sleeping too much: more than half the days 4. Feeling tired or having little energy: more than half the days 5. Poor appetite or overeating: nearly every day 6. Feeling bad about yourself - or that you are a failure or have let yourself or your family down: more than half the days 7. Trouble concentrating on things, such as reading the newspaper or watching television: several days 8. Moving or speaking so slowly that other people could have noticed. Or the opposite - being so fidgety or restless that you have been moving around a lot more than usual: not at all 9. Thoughts that you would be better off or of hurting yourself in some way: several days Total score: 14 Depression Screening Interpretation: Positive Depression Screening Follow-up: Existing condition and In treatment Depression Screening Done: Yes 60974 - PHQ-9 Billing: Yes Source: Developed by Drs. Du Simons, Aicha Anaya, Sandro Almanza and colleagues, with an educational cristobal from [employer]. Thrive Questionnaire Date Thrive assessed: 07/11/24 I am a: Patient What is your living situation today?: I have a steady place to live Within the past 12 months, did the food you bought not last and you didn't have the money to get more?: Sometimes True Within the past 12 months, did you worry whether your food would run out before you got money to buy more?: Often true Do you have trouble paying for medicines?: No Do you have trouble getting transportation to medical appointments?: No Do you have trouble paying your heating and electricity bill?: No Do you have trouble taking care of your child, family member or friend?: No Do you have trouble with day-to-day activities such as bathing, preparing meals, shopping, managing finances, etc.?: Yes Are you currently unemployed and looking for a job?: No Are you interested in more education?: Yes Please select the resources that you would like help with: None THRIVE Score: 2 GELY-7 AMB Questionnaire GELY-7 Date GELY - 7 assessed: 08/21/24 Feeling nervous, anxious, or on edge: 1 = Several days Not being able to stop or control worryin = More than half the days Worrying too much about different things: 2 = More than half the days Trouble relaxin = More than half the days Being so restless that it is hard to sit still: 1 = Several days Becoming easily annoyed or irritable: 2 = More than half the days Feeling afraid as if something awful might happen: 2 = More than half the days Total GELY-7 score (0-4 normal; 5-9 mild; 10-14 moderate; 15-21 severe): 12 Source: Developed by Drs. Du Simons, Aicha Anaya, Sandro Almanza and colleagues, with an educational cristobal from [employer]. GELY-7 Assessment Billing GELY-7 Assessment Tool: GELY-7 Assessment 51666 Review of Systems Const Details: Const Denies chills, Denies fatigue, Denies fever(s), Denies headache(s) and Denies weakness ENT Denies dizziness and Denies headache(s) Card Denies chest pain, Denies lightheadedness, Denies dyspnea and Denies other (Palpitations) Resp Denies cough, Denies dyspnea, Denies wheezing and Denies other ( shortness of breath) GI Denies abdominal pain, Denies melena, Denies hematochezia, Denies change in bowel habits, Denies dyspepsia and Denies nausea Denies hematuria and Denies dysuria Musc Denies abnormal gait, Denies myalgias, Denies arthralgias, Denies numbness and Denies tingling Skin/Breast Denies rash, Denies unusual bruising and Denies wounds Neuro Denies abnormal gait, Denies dizziness, Denies headache(s), Denies memory loss, Denies numbness, Denies Sensory deficit (Neuro), Denies tingling and Denies weakness Psych Reports anxiety, Reports depression, Denies memory loss Endo Denies cold intolerance, Denies fatigue, Denies heat intolerance, Denies polydipsia and Denies polyuria Aller/Immun Denies wheezing Physical exam (Primary Care) Vital Signs: Last Vital Signs Temp 98.5 F 08/21/24 13:31 Pulse 73 08/21/24 13:31 Resp 16 08/21/24 13:31 BP 124/70 08/21/24 13:31 Pulse Ox 99 08/21/24 13:31 Oxygen Delivery Method Room Air 08/21/24 13:31 BMI result Body Mass Index 34.7 Tobacco/Smoking Status: Tobacco use Status Tobacco use date assessed 08/21/24 08/21/24 13:35 Patient Tobacco Use Status Former Tobacco user 08/21/24 13:29 Tobacco use type Smokeless Tobacco 08/21/24 13:29 e-Cigarette/Vaping Use Currently Using 08/21/24 13:29 PHQ-9: PHQ-9 Score PHQ-9: Total score 14 08/21/24 13:35 Depression Screening Interpretation: Positive Depression Screening Follow-up: Existing condition and In treatment Thrive Assessment: Date of Thrive Assessment Date Thrive assessed 07/11/24 08/21/24 13:29 Const Other: General: no acute distress and well developed Nutritional Appearance: well nourished Orientation/consciousness: patient oriented x3 HENMT Head: Yes normocephalic and Yes atraumatic Eyes General: appearance normal, both eyes and all related structures Pupils: Equal, round and reactive pupils present EOM: EOMs intact bilaterally Resp Effort & Inspection: normal respiratory effort Auscultation: clear to auscultation bilaterally Cardio Rate: regular rate Rhythm: regular rhythm Heart sounds: S1 normal heart sound present, S2 normal heart sound present, no gallops, no murmurs and no rubs GI Palpation (GI): No Abdominal aortic bruit present, Soft to palpation, nontender, No hepatosplenomegaly present and No Rebound tenderness present Auscultation: normal bowel sounds General: Yes no CVA tenderness Back/Spine/Pelvis Back: no CVA tenderness Cervical Spine: cervical ROM normal and No Cervical spine tenderness Thoracic/Lumbar Spine: thoraco-lumbar ROM normal, No pain with thoraco-lumbar ROM, No thoracic spinal tenderness and No lumbar spinal tenderness Extrem General: Yes normal to inspection, No edema and No calf tenderness Skin General: warm and dry. Normal skin color. Normal skin turgor Neuro General: patient oriented x3, gait normal and no focal neuro deficit Cranial nerves: Yes Equal, round and reactive pupils present Cognition (Neuro): normal cognition Gait exam (Neuro): Normal gait present Sensory Exam: No Sensory deficit (Neuro) Psych Appearance: grossly normal Affect: normal affect Attitude: cooperative Thought process: Normal thought process present Coding Level of Care Code Est Pt Level 3 (48063) Diagnoses Anxiety F41.9 Depression F32.A Additional Codes GELY-7 Assessment Billing - GELY-7 Assessment Tool: GELY-7 Assessment 69253 ([id number]) PHQ-9 - 85970 - PHQ-9 Billing: Yes ([id number]) Assessment & Plan Assessment & Plan (1) Anxiety: Code(s): F41.9 - Anxiety disorder, unspecified Category: Medical Plan: He notes that his mood is better but has not improved much since his last visit. He is anxious about what is currently going around the world and reports from the news. He does not want WWIII to happened. Regarding PHQ-9 questionnaire, he notes that I won't feel this way if i wasn't alive. He denies SI or plan of committing suicide. He denies HI/AH/VH. He has been reading a book. He has not been able to exercise lately due to demands from his employer. PHQ-9 and GELY-7 scores revealed moderate depression and anxiety. Continue current treatment regimen. Routine exercise encouraged. Perform fasting blood work a few days before next visit. Follow-up in 5 weeks or sooner with worsening or new symptoms. Verbalized understanding and agreed with the plan. (2) Depression: Code(s): F32.A - Depression, unspecified Category: Medical Plan: Plan as above.
[2024-08-21 13:31] VITALS: BP 124/70; PULSE 73; RESP 16; TEMP 36.9; O2SAT 99; BMI 34.7
--- OUTSIDE RECORDS SUMMARY | 2024-08-21 14:47 | XMS_ITS | Encounter Summary ---
Author Organization [facility] Address [address] [place] [phone] Phone Care Team Providers Care Advertising Director Name Role Phone Abdullahi Chase MD Primary Care Provider [phone] Encounter Details Date Type Department Care Team (Late st Contact Info) Description 10/07/2016 Conversion Encounter [facility] - [address], [address] [place] [address] Abdullahi Chase MD [address] [place] [id number] Social History Tobacco Use Types Packs/Day Years [...] on filedocumented in this encounter Care Teams Advertising Director Relationship Specialty Start Date End Date Abdullahi Chase MD [address] [place] [address] PCP - General 04/21/16 09/15/20 documented as of this encounter
== END 2024-08-21 13:57 | disposition home or self-care (01) ==
LOC: HO.HMCFM 13:25
PROVIDERS: PCP Nurse Practitioner Family; Visit Provider Nurse Practitioner Family
DX: F41.9 Anxiety disorder, unspecified (principal); F32.A Depression, unspecified

== ENCOUNTER → 2024-08-21 13:24 | Outpatient (BNVA) | payer OTHER, SELFPAY | PROVIDERS: PCP Nurse Practitioner Family; Visit Provider Nurse Practitioner Family | DX: F41.9 Anxiety disorder, unspecified (principal); F32.A Depression, unspecified | CPT/HCPCS: 96127 ==

== ENCOUNTER 2024-09-22 08:55 | Outpatient (REF) | payer OTHER, SELFPAY ==
--- OUTSIDE RECORDS SUMMARY | 2024-09-22 09:14 | XMS_ITS | Clinical Summary ---
Author Organization [facility] Address [address] [place] [phone] Phone Care Team Providers Care Employee Benefits Manager Name Role Phone Pcp, Unknown Primary Care Provider Unavailabl e Allergies No known active allergies Medications No known medications Active Problems No known active problems Social History Tobacco Use Types Packs/Day Years Used Date Smoking Tobacco: Every Day Smokeless Tobacco: Never Comments:Per patient 15 ciga rrettes per day Alcohol Use Standard Drinks/Week Comments Yes 0 (1 standard drink = 0.6 oz pur e alcohol) Education Answer Date Recorded Are you interested in more education? Not on leonard e 06/26/2022 Are you concerned about learning? Not on file 06/26/2022 No 06/26/2022 No 06/26/2022 Digital Access Answer Date Recorded No 07/24/2022 No 07/24/2022 No 07/24/2022 Reliable internet access at home? Not on file 07/24/2022 Device with a working camera? Not on file Sex and Gender Information Value Date Recorded Sex Assigned at Male 06/14/2018 9:14 PM EDT Legal Sex Male 8:52 PM EDT Gender Identity Male 06/14/2018 9:14 PM EDT Sexual Orientation Not on file Last Filed Vital Signs Vital Sign Reading Time Taken Comments Blood Pressure 116/77 02/01/2022 4:43 PM EST Pulse 79 02/01/2022 4:43 PM EST Temperature 36.8 C (98.2 F) 02/01/2022 2:50 PM EST Respiratory Rate 18 02/01/2022 4:43 PM EST Oxygen Saturation 99% 02/01/2022 4:43 PM EST Inhaled Oxygen Concentration - - Weight 113.4 kg (250 lb) 02/01/2022 2:50 PM EST Height 188 cm (6' 2 ) 02/01/2022 2:50 PM EST Body Mass Index 32.1 02/01/2022 2:50 PM EST Plan of Treatment Health Maintenance Due Date Last Done Comments DEPRESSION SCREENING 2006 SMOKING Hx and SMOKELESS TOBACCO SCREENING 10/20/2007 HEPATITIS C SCREENING 2012 HIV ONE-TIME SCREENING (18-65 YEARS) 2012 PNEUMOCOCCAL VACCINES (0-49 years) (1 of 2 - PCV) 2013 COVID-19 VACCINE ( - 2023- season) 2023 06/20/2020, 05/30/2020 Adult Td,Tdap Booster 03/20/2026 03/20/2016, 007 HIB VACCINES Completed 01/31/1996, 06/1995, 02/15/1995, Additional history exists MENINGOCOCCAL VACCINES (ACWY) Aged Out 01/20/2014, 10/22/2006 No longer eligibl e based on patient's age to complete this topic HEPATITIS A VACCINES Aged Out No long er eligible based on patient's age to complete this topic MENINGOCOCCAL VACCINES (B) Aged Out N o longer eligible based on patient's age to complete this topic Medical Devices Not on [place] [address] [place] [address] [address] PPO Member Subscriber Plan / Payer (Ef fective 2017-Present) Name:Zan Henderson Relation to Subscriber:Self Name:Zan Henderson Payer ID:[id number] ([facility]) Type:PPO Address: [address] PPO [facility] PPO EPO Member Subscriber Plan / Payer (Ef fective 2017-Present) Name:Zan Henderson Relation to Subscriber:Self Name:Zan Henderson Payer ID:[id number] ([facility]) Type:PPO Address: [id number] PPO [facility] PPO EPO PPO [facility] PPO EPO Member Subscriber Plan / Payer (Ef fective 2017-Present) Name:Zan Henderson Relation to Subscriber:Self Name:Zan Henderson Payer ID:[id number] (NA) Type:PPO Address: [address] PPO [facility] PPO EPO Member Subscriber Plan / Payer (Ef fective 2017-Present) Name:Zan Henderson Relation to Subscriber:Self Name:Zan Henderson Payer ID:[id number] ([facility]) Type:PPO Address: [address] PPO [facility] PPO EPO [facility] PPO EPO [facility] PPO EPO Care Teams Employee Benefits Manager Relationship Specialty Start Date End Date Pcp, Unknown PCP - General 02/01/22 Additional Source Comments The information contained in this document represents components of the legal health record. It is not the complete legal health record.[facility]"
--- OUTSIDE RECORDS SUMMARY | 2024-09-22 09:14 | XMS_ITS | Encounter Summary ---
Author Organization [facility] Address [address] [place] [address] Phone Care Team Providers Care Jtac Name Role Phone Abdullahi Chase MD Primary Care Provider [phone] Encounter Details Date Type Department Care Team (Late st Contact Info) Description 10/07/2016 Conversion Encounter [facility] - [address], [address] [place] [address] Abdullahi Chase MD [address] [place] [phone] Social History Tobacco Use Types Packs/Day Years [...] on filedocumented in this encounter Care Teams Jtac Relationship Specialty Start Date End Date Abdullahi Chase MD [address] [place] [address] PCP - General 04/21/16 09/15/20 documented as of this encounter
[2024-09-22 11:36] LABS: Alanine Aminotransferase 47 U/L (0-40); Albumin Level 4.4 g/dL (3.5-5.0); Alkaline Phosphatase 62 U/L (39-117); Aspartate Amino Transferase 39 U/L (5-37); Cholesterol 162 mg/dL (<200); HDL Cholesterol 33 mg/dL (>40); Total Protein 6.5 g/dL (6.5-8.0); Triglycerides 145 mg/dL (<150)
[2024-09-22 11:36] LABS: Appearance Urine Clear; Glucose Urine UA Negative (Negative); PH 8.5 (5.0-9.0); Specific Gravity - Urine 1.025 (1.005-1.025)
== END 2024-09-22 08:56 | disposition home or self-care (01) ==
LOC: HO.WFDLDS 08:55
PROVIDERS: Visit Provider Nurse Practitioner Family
DX: Z00.00 Encounter for general adult medical examination without abnormal findings (principal); E80.6 Other disorders of bilirubin metabolism; R74.01 Elevation of levels of liver transaminase levels
CPT/HCPCS: 36415; 80061; 80076; 81003

== ENCOUNTER 2024-09-26 09:00 | Outpatient (AMB) | payer OTHER, SELFPAY ==
--- NOTE | 2024-09-26 09:03 | MHC.PC.OV ---
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: No Allergies No Known Allergies Allergy (Verified 09/26/24 09:32) Medication List - Last Reconciled 09/26/24 by Junie Lo CNP bupropion HCl XL 300 mg PO QAM 30 days cholecalciferol (vitamin D3) (Vitamin D3) 25 mcg PO DAILY 90 days hydroxyzine HCl 25 mg PO TID PRN Tobacco use date assessed: 09/26/24 Dental Screening Dental Screen Date: 09/26/24 Did you have a dental visit in the last 12 months?: No Did you have a dental problem in the last 6 months where you did not have access to dental care?: No Was dental information given to patient?: Patient has dentist HPI HPI Comments History of Present Illness Details 28-year-old male presents for anxiety, depression, and labs review follow-up. He admits to taking his medications as prescribed without adverse reactions. He notes that his mood is better that it has been. 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 He notes passive SI and states that if i was not around, thinks won't be stressing me. He states that he has a lot to look forward to and want to stay alive. Denies active SI and denies plan. He notes that he has significantly cut down on drinking and currently drinks 2-3 beers every other week. No acute symptoms at this time. [facility] Medical History (Updated 07/31/24 @ 09:40 by Junie Lo CNP) Alcoholism Depression Anxiety Headache History of gastroesophageal reflux (GERD) Torn ACL High blood pressure Asthma Surgical History (Updated 07/11/24 @ 15:05 by Windy Pope MA) S/P wisdom tooth extraction Family History (Updated 07/11/24 @ 15:09 by Windy Pope MA) Father Alcohol abuse High blood pressure High cholesterol Paternal Grandfather Alcohol abuse High blood pressure High cholesterol Mother Anxiety Asthma Sister Anxiety Maternal Grandmother Thyroid disorder Breast cancer Maternal Grandfather Colon cancer Lung cancer Social History (Updated 07/11/24 @ 15:00 by Windy Pope MA) Housing: Apartment Patient Tobacco Use Status: Former Tobacco user Tobacco use type: Smokeless Tobacco e-Cigarette/Vaping Use: Currently Using Second Hand Smoke Exposure: No Substance Use Type: Marijuana service: No Current occupational status: employed 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 1. Little interest or pleasure in doing things: several days 2. Feeling down, depressed, or hopeless: several days 3. Trouble falling or staying asleep, or sleeping too much: nearly every day 4. Feeling tired or having little energy: several days 5. Poor appetite or overeating: more than half the days 6. Feeling bad about yourself - or that you are a failure or have let yourself or your family down: several days 7. Trouble concentrating on things, such as reading the newspaper or watching television: several days 8. Moving or speaking so slowly that other people could have noticed. Or the opposite - being so fidgety or restless that you have been moving around a lot more than usual: several days 9. Thoughts that you would be better off or of hurting yourself in some way: several days Total score: 12 Depression Screening Interpretation: Positive Depression Screening Follow-up: Existing condition, In treatment and Community Mental Health Worker F/U Depression Screening Done: Yes 95795 - PHQ-9 Billing: Yes Source: Developed by Drs. Du Simons, Aicha Anaya, Sandro Almanza and colleagues, with an educational cristobal from [employer]. Thrive Questionnaire Date Thrive assessed: 07/11/24 I am a: Patient What is your living situation today?: I have a steady place to live Within the past 12 months, did the food you bought not last and you didn't have the money to get more?: Sometimes True Within the past 12 months, did you worry whether your food would run out before you got money to buy more?: Often true Do you have trouble paying for medicines?: No Do you have trouble getting transportation to medical appointments?: No Do you have trouble paying your heating and electricity bill?: No Do you have trouble taking care of your child, family member or friend?: No Do you have trouble with day-to-day activities such as bathing, preparing meals, shopping, managing finances, etc.?: Yes Are you currently unemployed and looking for a job?: No Are you interested in more education?: Yes Please select the resources that you would like help with: None THRIVE Score: 2 GELY-7 AMB Questionnaire GELY-7 Date GELY - 7 assessed: 09/26/24 Feeling nervous, anxious, or on edge: 1 = Several days Not being able to stop or control worryin = Several days Worrying too much about different things: 1 = Several days Trouble relaxin = More than half the days Being so restless that it is hard to sit still: 0 = Not at all Becoming easily annoyed or irritable: 2 = More than half the days Feeling afraid as if something awful might happen: 1 = Several days Total GELY-7 score (0-4 normal; 5-9 mild; 10-14 moderate; 15-21 severe): 8 Source: Developed by Drs. Du Simons, Aicha Anaya, Sandro Almanza and colleagues, with an educational cristobal from [employer]. GELY-7 Assessment Billing GELY-7 Assessment Tool: GELY-7 Assessment 96231 Review of Systems Const Details: Const Denies chills, Denies fatigue, Denies fever(s), Denies headache(s) and Denies weakness ENT Denies dizziness and Denies headache(s) Card Denies chest pain, Denies lightheadedness, Denies dyspnea and Denies other (Palpitations) Resp Denies cough, Denies dyspnea, Denies wheezing and Denies other ( shortness of breath) GI Denies abdominal pain, Denies melena, Denies hematochezia, Denies change in bowel habits, Denies dyspepsia and Denies nausea Denies hematuria and Denies dysuria Musc Denies abnormal gait, Denies myalgias, Denies arthralgias, Denies numbness and Denies tingling Skin/Breast Denies rash, Denies unusual bruising and Denies wounds Neuro Denies abnormal gait, Denies dizziness, Denies headache(s), Denies memory loss, Denies numbness, Denies Sensory deficit (Neuro), Denies tingling and Denies weakness Psych Reports anxiety, Reports depression, Denies memory loss Endo Denies cold intolerance, Denies fatigue, Denies heat intolerance, Denies polydipsia and Denies polyuria Aller/Immun Denies wheezing Physical exam (Primary Care) Vital Signs: Last Vital Signs Temp 97.8 F 09/26/24 09:07 Pulse 85 09/26/24 09:07 Resp 16 09/26/24 09:07 BP 126/76 09/26/24 09:07 Pulse Ox 98 09/26/24 09:07 Oxygen Delivery Method Room Air 09/26/24 09:07 BMI result Body Mass Index 34.3 Tobacco/Smoking Status: Tobacco use Status Tobacco use date assessed 09/26/24 09/26/24 09:13 Patient Tobacco Use Status Former Tobacco user 09/26/24 09:05 Tobacco use type Smokeless Tobacco 09/26/24 09:05 e-Cigarette/Vaping Use Currently Using 09/26/24 09:05 PHQ-9: PHQ-9 Score PHQ-9: Total score 12 09/26/24 09:48 Depression Screening Interpretation: Positive Depression Screening Follow-up: Existing condition, In treatment and Community Mental Health Worker F/U Thrive Assessment: Date of Thrive Assessment Date Thrive assessed 07/11/24 09/26/24 09:05 Const Other: General: no acute distress and well developed Nutritional Appearance: well nourished Orientation/consciousness: patient oriented x3 HENMT Head: Yes normocephalic and Yes atraumatic Eyes General: appearance normal, both eyes and all related structures Pupils: Equal, round and reactive pupils present EOM: EOMs intact bilaterally Resp Effort & Inspection: normal respiratory effort Auscultation: clear to auscultation bilaterally Cardio Rate: regular rate Rhythm: regular rhythm Heart sounds: S1 normal heart sound present, S2 normal heart sound present, no gallops, no murmurs and no rubs GI Palpation (GI): No Abdominal aortic bruit present, Soft to palpation, nontender, No hepatosplenomegaly present and No Rebound tenderness present Auscultation: normal bowel sounds General: Yes no CVA tenderness Back/Spine/Pelvis Back: no CVA tenderness Cervical Spine: cervical ROM normal and No Cervical spine tenderness Thoracic/Lumbar Spine: thoraco-lumbar ROM normal, No pain with thoraco-lumbar ROM, No thoracic spinal tenderness and No lumbar spinal tenderness Extrem General: Yes normal to inspection, No edema and No calf tenderness Skin General: warm and dry. Normal skin color. Normal skin turgor Neuro General: patient oriented x3, gait normal and no focal neuro deficit Cranial nerves: Yes Equal, round and reactive pupils present Cognition (Neuro): normal cognition Gait exam (Neuro): Normal gait present Sensory Exam: No Sensory deficit (Neuro) Psych Appearance: grossly normal Affect: normal affect Attitude: cooperative Thought process: Normal thought process present Coding Level of Care Code Est Pt Level 4 (80492) Diagnoses Anxiety F41.9 Depression F32.A Hyperlipidemia E78.5 Vitamin D deficiency E55.9 Transaminitis R74.01 Hyperbilirubinemia E80.6 Additional Codes GELY-7 Assessment Billing - GELY-7 Assessment Tool: GELY-7 Assessment 88094 ([id number]) PHQ-9 - 92505 - PHQ-9 Billing: Yes ([id number]) Assessment & Plan Assessment & Plan (1) Anxiety: Code(s): F41.9 - Anxiety disorder, unspecified Category: Medical Plan: He notes that his mood is better that it has been. 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 He notes passive SI and states that if i was not around, thinks won't be stressing me. He states that he has a lot to look forward to and want to stay alive. Denies active SI and denies plan. PHQ-9 and GELY-7 scores revealed severe depression and mild anxiety respectively. Continue current treatment regimen. Routine exercise encouraged. He met with our community health worker this morning to connect him to a therapist. Follow-up in 1 month or sooner with worsening or new symptoms. Verbalized understanding and agreed with plan. (2) Depression: Code(s): F32.A - Depression, unspecified Category: Medical Plan: Plan as above. (3) Hyperlipidemia: Code(s): E78.5 - Hyperlipidemia, unspecified Category: Medical Plan: Recent LDL level is slightly elevated, 100, HDL level is low, 33. Triglycerides and total cholesterol levels are normal. Advised to limit foods high in saturated fat and avoid foods high in trans fat. Routine exercise encouraged. Will recheck lipid panel levels in 3 months. Verbalized understanding and agreed with the plan. (4) Vitamin D deficiency: Code(s): E55.9 - Vitamin D deficiency, unspecified Category: Medical Plan: Continue current treatment regimen. Will recheck vitamin-D level and make changes as needed. (5) Transaminitis: Code(s): R74.01 - Elevation of levels of liver transaminase levels Category: Medical Plan: Recent AST and ALT levels are slightly elevated, 39 and 47 respectively. Previous levels were slightly elevated. Asymptomatic. Likely hepatic steatosis. Healthy diet/weight management encouraged. Will monitor liver enzyme annually or as needed. Verbalized understanding and agreed with the plan. (6) Hyperbilirubinemia: Code(s): E80.6 - Other disorders of bilirubin metabolism Category: Medical Plan: Recent bilirubin level is normal. Orders: Orders Lipid Panel 3 Months E78.5 - Hyperlipidemia, unspecified Vitamin D 25-OH Total Today E55.9 - Vitamin D deficiency, unspecified
[2024-09-26 09:07] VITALS: BP 126/76; PULSE 85; RESP 16; TEMP 36.6; O2SAT 98; BMI 34.3
--- OUTSIDE RECORDS SUMMARY | 2024-09-26 09:21 | XMS_ITS | Encounter Summary ---
Author Organization [facility] Address [address] [place] [address] Phone Care Team Providers Care Insulator Technician Name Role Phone Abdullahi Chase MD Primary Care Provider [phone] Encounter Details Date Type Department Care Team (Late st Contact Info) Description 10/07/2016 Conversion Encounter [facility] - [address], [address] [place] [address] Abdullahi Chase MD [address] [place] [id number] Social History Tobacco Use Types Packs/Day Years [...] on filedocumented in this encounter Care Teams Insulator Technician Relationship Specialty Start Date End Date Abdullahi Chase MD [address] [place] [address] PCP - General 04/21/16 09/15/20 documented as of this encounter
--- OUTSIDE RECORDS SUMMARY | 2024-09-26 09:22 | XMS_ITS | Clinical Summary ---
Author Organization [facility] Address [address] [facility] [address] [place] [address] Phone Care Team Providers Care Fisherman Helper Name Role Phone Pcp, Unknown Primary Care [...] topic Medical Devices Not on file Insurance [address] [place] [address] [place] [address] [address] PPO Member Subscriber Plan / Payer (Ef fective 2017-Present) Name:Zan Henderson Relation to Subscriber:Self Name:Zan Henderson Payer ID:[id number] ([facility]) Type:PPO Address: [address] PPO [facility] PPO EPO Member Subscriber Plan / Payer (Ef fective 2017-Present) Name:Zan Henderson Relation to Subscriber:Self Name:Zan Henderson Payer ID:[id number] ([facility]) Type:PPO Address: [address] PPO [facility] PPO EPO PPO [facility] PPO EPO Member Subscriber Plan / Payer (Ef fective 2017-Present) Name:Zan Henderson Relation to Subscriber:Self Name:Zan Henderson Payer ID:[id number] (NA) Type:PPO Address: [address] P[address] [facility] PPO EPO Member Subscriber Plan / Payer (Ef fective 2017-Present) Name:Zan Henderson Relation to Subscriber:Self Name:Zan Henderson Payer ID:[id number] ([facility]) Type:PPO Address: [address] [facility] PPO EPO [facility] PPO EPO [facility] PPO EPO Care Teams Fisherman Helper Relationship Specialty Start Date End Date Pcp, Unknown PCP - General 02/01/22 Additional Source Comments The information contained in this document represents components of the legal health record. It is not the complete legal health record.[facility]
== END 2024-09-26 09:48 | disposition home or self-care (01) ==
LOC: HO.HMCFM 09:01
PROVIDERS: PCP Nurse Practitioner Family; Visit Provider Nurse Practitioner Family
DX: F41.9 Anxiety disorder, unspecified (principal); F32.A Depression, unspecified; E78.5 Hyperlipidemia, unspecified; E55.9 Vitamin D deficiency, unspecified; R74.01 Elevation of levels of liver transaminase levels; E80.6 Other disorders of bilirubin metabolism

== ENCOUNTER → 2024-09-26 09:00 | Outpatient (BNVA) | payer OTHER, SELFPAY | PROVIDERS: PCP Nurse Practitioner Family; Visit Provider Nurse Practitioner Family | DX: F41.9 Anxiety disorder, unspecified (principal); F32.A Depression, unspecified; E78.5 Hyperlipidemia, unspecified; E55.9 Vitamin D deficiency, unspecified; R74.01 Elevation of levels of liver transaminase levels; E80.6 Other disorders of bilirubin metabolism; Z13.31 Encounter for screening for depression; Z13.39 Encounter for screening examination for other mental health and behavioral disorders | CPT/HCPCS: 96127 ==

== ENCOUNTER 2024-09-26 10:03 | Outpatient (REF) | payer OTHER, SELFPAY | END 2024-09-26 10:04 | disposition home or self-care (01) | LOC: HO.WFDLDS 10:03 | PROVIDERS: Visit Provider Nurse Practitioner Family | DX: E55.9 Vitamin D deficiency, unspecified (principal); Z73.3 Stress, not elsewhere classified | CPT/HCPCS: 36415; 82306 ==

== ENCOUNTER 2024-11-15 09:03 | Outpatient (AMB) | payer OTHER, SELFPAY ==
--- NOTE | 2024-11-15 09:05 | A.OFFVIS_ITS ---
Vital Signs 11/15/24 09:06 Height 6 ft 2 in Weight 262 lb 5.601 oz BMI 33.7 BP 123/82 Blood Pressure Location Lt brachial Position Sitting Pulse 72 Intake Visit Reasons: Hemorrhage of anus and rectum Intake Note: Zan presents in the office as a new patient for hemorrhage of anus and rectum. CC: States that he had a ruptured hemmoroid and he is not actively bleeding. States that he has on and off constipation but its not severe. 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 Reports intermittent rectal bleeding that started back when he was in high school and was told of hemorrhoids. Last month he also felt a hemorhhoid prolapse bleed a lot. Enough to bleed through the pants. This resolved spontaneously within a few days. No assoc abd pain, cramping, nausea or vomiting. Stool was somewhat mushy. Does not recall straining or pushing to defecate during those days. No anemia on labs. Has not taken any pharmacotherapy for this or sought surgical treatment. [facility] Medical History Alcoholism Depression Anxiety Headache History of gastroesophageal reflux (GERD) Torn ACL High blood pressure Asthma Surgical History S/P wisdom tooth extraction Family History Father Alcohol abuse High blood pressure High cholesterol Paternal Grandfather Alcohol abuse High blood pressure High cholesterol Mother Anxiety Asthma Sister Anxiety Maternal Grandmother Thyroid disorder Breast cancer Maternal Grandfather Colon cancer Lung cancer Social History Housing: Apartment Patient Tobacco Use Status: Former Tobacco user Tobacco use type: Smokeless Tobacco e-Cigarette/Vaping Use: Currently Using Second Hand Smoke Exposure: No Substance Use Type: Marijuana service: No Current occupational status: employed 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 Current occupational exposures/hazards: No Cognitive needs: No Hearing needs: No Vision needs: No Review of Systems Const All systems reviewed & are unremarkable except as noted in HPI and below Physical Exam Exam Exam: No apparent distress Nonicteric Abdomen soft, nondistended rectal exam: no anal tags, no ext hemorrhoids, digital exam with internal hemorrhoids, fluctuance appreciated Alert and oriented x3, normal gait Vital Signs: Last Vital Signs Pulse 72 11/15/24 09:06 BP 123/82 11/15/24 09:06 BMI result Body Mass Index 33.7 Assessment & Plan Assessment & Plan (1) Bright red rectal bleeding: Code(s): K62.5 - Hemorrhage of anus and rectum Category: Medical (2) Hemorrhoids: Code(s): K64.9 - Unspecified hemorrhoids Category: Medical Qualifiers: Hemorrhoid type: unspecified Qualified Code(s): K64.9 - Unspecified hemorrhoids Plan Based on clinical assessment, rectal bleeding likely 2/2 hemorrhoidal bleeding. Pt reports fam hx of colorectal ca in his paternal grandfather and is quite apprehensive. Will book for a colo. Plan: - Avoid constipation and straining. Can take OTC senna or miralax to manage constipation. - avoid lifting heavy weights - increase hydration and fiber intake - anusol cream x 10-14 days - colo to be booked. - PEG prep Rxed and instructions reviewed Follow up after colo Orders: Referrals GI Procedure Notification K62.5 - Hemorrhage of anus and rectum Medications: New peg 3350-electrolytes 236-22.74-6.74 -5.86 gram (Golytely) as per split prep instructions, until fecal effluent is clear 240 mL PO Q10M 4,000 mL 0RF colonoscopy hydrocortisone 2.5% (Anusol-HC) use for 7-10 days for hemorrhoidal bleeding 1 appl ID BEDTIME PRN 30 grams 0RF hemorrhoids Coding Level of Care Code New Pt Level 4 (48815) Diagnoses Bright red rectal bleeding K62.5 Hemorrhoids K64.9 Hemorrhoid type: unspecified
[2024-11-15 09:06] VITALS: BP 123/82; PULSE 72; BMI 33.7
--- OUTSIDE RECORDS SUMMARY | 2024-11-15 10:38 | XMS_ITS | Clinical Summary ---
Author Organization [facility] Address [address] [place] [address] Phone Care Team Providers Care Accounting Specialist Name Role Phone Unavailable Primary Care Provider [...] 55 01/22/2017 8:06 AM EST Temperature 37 C (98.6 F) 01/13/2016 12:00 AM EST Respiratory Rate - [...] 2-dose series) 03/05/2015 05/31/1995 Influenza Vaccines (#1) 2024 03/20/19 17, 02/05/2015, 01/20/2014, Additional history exists COVID-19 Vaccine ( - season) 2024 DTaP,Tdap,and Td Vaccines (8 - Td or [...]
--- OUTSIDE RECORDS SUMMARY | 2024-11-15 10:38 | XMS_ITS | Encounter Summary ---
Author Organization [facility] Address [address] [facility] [address] [place] [address] Phone Care Team Providers Care Laboratory Specialist Name Role Phone Pcp, Unknown Primary Care Provider Unavailabl e Encounter Details Date Type Department Care Team (Late st Contact Info) Description 02/01/2022 Procedure [facility] Scan - [address] [address] Social History Tobacco Use Types Packs/Day Years Used Date Smoking Tobacco: Every Day Smokeless Tobacco: Never Comments:Per patient 15 ciga rrettes per day Alcohol Use Standard Drinks/Week Comments Yes 0 (1 standard drink = 0.6 oz pur e alcohol) Sex and Gender Information Value Date Recorded Sex Assigned at Male 06/14/2018 9:14 PM EDT Legal Sex Male 8:52 PM EDT Gender Identity Male 06/14/2018 9:14 PM EDT Sexual Orientation Not on file documented as of this encounter Functional Status * Calculated C-SSRS Risk Score (Lifetime/Recent) Answer Date of Assessment Author No Risk Indicated 02/01/2022 2:52 PM Dara Burt RN * [place] Suicide Severity Rating Scale (Screener/Recent Self-Report) Question Answer Date of Assessment Author 1. Wish to be (Past 1 Month) No 022 2:52 PM Dara Burt RN 2. Non-Specific Active Suici birdie Thoughts (Past 1 Month) No 02/01/2022 2:52 PM Dara Burt RN 6. Suicidal Behavior (Lifetime) No 2:52 PM EST Motha, Dara G, RN documented as of this encounter Plan of Treatment Not on file documented as of this encounter Visit Diagnoses Not on filedocumented in this encounter Care Teams Laboratory Specialist Relationship Specialty Start Date End Date Pcp, Unknown PCP - General 02/01/22 documented as of this encounter Additional Source Comments The information contained in this document represents components of the legal health record. It is not the complete legal health record.[facility]
--- OUTSIDE RECORDS SUMMARY | 2024-11-15 10:38 | XMS_ITS | Encounter Summary ---
Author Organization [facility] Address [address] [place] [address] Phone Care Team Providers Care Golf Ball Marker Name Role Phone Abdullahi Chase MD Primary Care Provider [phone] Encounter Details Date Type Department Care Team (Late st Contact Info) Description 10/07/2016 Conversion Encounter [facility] - [address], [address] [place] [address] Abdullahi Chase MD [address] [place] [phone] Social History Tobacco Use Types Packs/Day Years [...] on filedocumented in this encounter Care Teams Golf Ball Marker Relationship Specialty Start Date End Date Abdullahi Chase MD [address] [place] [address] PCP - General 04/21/16 09/15/20 documented as of this encounter
--- OUTSIDE RECORDS SUMMARY | 2024-11-15 10:38 | XMS_ITS | Clinical Summary ---
Author Organization [facility] Address [address] [facility] [address] [place] [address] Phone Care Team Providers Care Enterostomal Nurse Name Role Phone Pcp, Unknown Primary Care [...] years) (1 of 2 - PCV) 2013 INFLUENZA VACCINE (#1) 2024 7, 02/05/2015, 01/20/2014, Additional history exists COVID-19 VACCINE ( season) 2024 06/20/2020, 05/30/2020 Adult Td,Tdap Booster 03/20/2026 03/20/2016, [...] topic Medical Devices Not on file Insurance [address] [place] [address] [facility] [place] [address] [place] [address] PPO [facility] PPO EPO Member Subscriber Plan / Payer (Ef fective 2017-Present) Name:Zan Henderson Relation to Subscriber:Self Name:Zan Henderson Payer ID:[id number] ([facility]) Type:PPO Address: [address] PPO [facility] PPO EPO PPO [facility] PPO EPO Member Subscriber Plan / Payer (Ef fective 2017-Present) Name:Zan Henderson Relation to Subscriber:Self Name:Zan Henderson Payer ID:[id number] ([facility]) Type:PPO Address: [address] PPO [facility] PPO EPO Member Subscriber Plan / Payer (Ef fective 2017-Present) Name:Zan Henderson Relation to Subscriber:Self Name:Zan Henderson Payer ID:[id number] ([facility]) Type:PPO Address: [id number] [facility] PPO [facility] PPO EPO PPO [facility] [place] [address] [place] [address] [place] [address] [place] [address] PPO EPO Care Teams Enterostomal Nurse Relationship Specialty Start Date End Date Pcp, Unknown PCP - General 02/01/22 Additional Source Comments The information contained in this document represents components of the legal health record. It is not the complete legal health record.[facility]
== END 2024-11-15 09:53 | disposition home or self-care (01) ==
LOC: HO.HGI 09:04
PROVIDERS: PCP Nurse Practitioner Family; Visit Provider Internal Medicine
DX: K62.5 Hemorrhage of anus and rectum (principal); K64.9 Unspecified hemorrhoids
CPT/HCPCS: 99204

== ENCOUNTER 2024-11-24 10:38 | Outpatient (AMB) | payer OTHER, SELFPAY ==
--- NOTE | 2024-11-24 10:54 | MHC.PC.OV ---
Vital Signs 11/24/24 10:58 Height 6 ft 2 in Weight 262 lb 4 oz BMI 33.7 BP 126/76 Blood Pressure Location Rt brachial Position Sitting Respiration 16 Pulse 77 Pulse Source Pulse Oximeter Temp 97.8 F Temp Source Oral Pulse Oximetry (%) 98 Oxygen Delivery Method Room Air Intake Visit Reasons: 1 mos anxiety, depression Intake Note: patient here for 1 month follow up on anxiety and depression Programming Coordinator Required: No Allergies No Known Allergies Allergy (Verified 11/24/24 11:02) Medication List - Last Reconciled 11/24/24 by Junie Lo CNP bupropion HCl XL 300 mg PO QAM 30 days cholecalciferol (vitamin D3) (Vitamin D3) 25 mcg PO DAILY 90 days hydrocortisone 2.5% (Anusol-HC) 1 appl NV BEDTIME PRN hydroxyzine HCl 25 mg PO TID PRN peg 3350-electrolytes 236-22.74-6.74 -5.86 gram (Golytely) 240 mL PO Q10M Tobacco use date assessed: 11/24/24 Dental Screening Dental Screen Date: 11/24/24 Did you have a dental visit in the last 12 months?: Yes Did you have a dental problem in the last 6 months where you did not have access to dental care?: No Was dental information given to patient?: Patient has dentist HPI HPI Comments History of Present Illness Details 29-year-old male presents for anxiety and depression follow-up. He admits to taking his medications as prescribed without adverse reactions. He notes that he has been making healthy lifestyle changes. He notes that his anxiety and depressive symptoms are generally well controlled. However, work is still a significant stressor. He has not been able to schedule an appointment to establish with a therapist due to the busy nature of his job but plan on doing so sometime next month. No acute symptoms at this time. [facility] Medical History Alcoholism Depression Anxiety Headache History of gastroesophageal reflux (GERD) Torn ACL High blood pressure Asthma Surgical History S/P wisdom tooth extraction Family History Father Alcohol abuse High blood pressure High cholesterol Paternal Grandfather Alcohol abuse High blood pressure High cholesterol Mother Anxiety Asthma Sister Anxiety Maternal Grandmother Thyroid disorder Breast cancer Maternal Grandfather Colon cancer Lung cancer Social History Housing: Apartment Patient Tobacco Use Status: Former Tobacco user Tobacco use type: Smokeless Tobacco e-Cigarette/Vaping Use: Currently Using Second Hand Smoke Exposure: No Substance Use Type: Marijuana service: No Current occupational status: employed 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 1. Little interest or pleasure in doing things: several days 2. Feeling down, depressed, or hopeless: several days 3. Trouble falling or staying asleep, or sleeping too much: nearly every day 4. Feeling tired or having little energy: more than half the days 5. Poor appetite or overeating: more than half the days 6. Feeling bad about yourself - or that you are a failure or have let yourself or your family down: more than half the days 7. Trouble concentrating on things, such as reading the newspaper or watching television: several days 8. Moving or speaking so slowly that other people could have noticed. Or the opposite - being so fidgety or restless that you have been moving around a lot more than usual: not at all 9. Thoughts that you would be better off or of hurting yourself in some way: not at all Total score: 12 Depression Screening Interpretation: Positive Depression Screening Done: Yes 38660 - PHQ-9 Billing: Yes Source: Developed by Drs. Du Simons, Aicha Anaya, Sandro Almanza and colleagues, with an educational cristobal from [employer]. Thrive Questionnaire Date Thrive assessed: 07/11/24 I am a: Patient What is your living situation today?: I have a steady place to live Within the past 12 months, did the food you bought not last and you didn't have the money to get more?: Sometimes True Within the past 12 months, did you worry whether your food would run out before you got money to buy more?: Often true Do you have trouble paying for medicines?: No Do you have trouble getting transportation to medical appointments?: No Do you have trouble paying your heating and electricity bill?: No Do you have trouble taking care of your child, family member or friend?: No Do you have trouble with day-to-day activities such as bathing, preparing meals, shopping, managing finances, etc.?: Yes Are you currently unemployed and looking for a job?: No Are you interested in more education?: Yes Please select the resources that you would like help with: None THRIVE Score: 2 GELY-7 AMB Questionnaire GELY-7 Date GELY - 7 assessed: 11/24/24 Feeling nervous, anxious, or on edge: 2 = More than half the days Not being able to stop or control worryin = More than half the days Worrying too much about different things: 2 = More than half the days Trouble relaxin = More than half the days Being so restless that it is hard to sit still: 2 = More than half the days Becoming easily annoyed or irritable: 2 = More than half the days Feeling afraid as if something awful might happen: 1 = Several days Total GELY-7 score (0-4 normal; 5-9 mild; 10-14 moderate; 15-21 severe): 13 Source: Developed by Drs. Du Simons, Aicha Anaya, Sandro Almanza and colleagues, with an educational cristobal from [employer]. GELY-7 Assessment Billing GELY-7 Assessment Tool: GELY-7 Assessment 05482 Review of Systems Const Details: Const Denies chills, Denies fatigue, Denies fever(s), Denies headache(s) and Denies weakness ENT Denies dizziness and Denies headache(s) Card Denies chest pain, Denies lightheadedness, Denies dyspnea and Denies other (Palpitations) Resp Denies cough, Denies dyspnea, Denies wheezing and Denies other ( shortness of breath) GI Denies abdominal pain, Denies melena, Denies hematochezia, Denies change in bowel habits, Denies dyspepsia and Denies nausea Denies hematuria and Denies dysuria Musc Denies abnormal gait, Denies myalgias, Denies arthralgias, Denies numbness and Denies tingling Skin/Breast Denies rash, Denies unusual bruising and Denies wounds Neuro Denies abnormal gait, Denies dizziness, Denies headache(s), Denies memory loss, Denies numbness, Denies Sensory deficit (Neuro), Denies tingling and Denies weakness Psych Denies anxiety, Denies depression, Denies memory loss Endo Denies cold intolerance, Denies fatigue, Denies heat intolerance, Denies polydipsia and Denies polyuria Aller/Immun Denies wheezing Physical exam (Primary Care) Vital Signs: Last Vital Signs Temp 97.8 F 11/24/24 10:58 Pulse 77 11/24/24 10:58 Resp 16 11/24/24 10:58 BP 126/76 11/24/24 10:58 Pulse Ox 98 11/24/24 10:58 Oxygen Delivery Method Room Air 11/24/24 10:58 BMI result Body Mass Index 33.7 Tobacco/Smoking Status: Tobacco use Status Tobacco use date assessed 11/24/24 11/24/24 11:02 Patient Tobacco Use Status Former Tobacco user 11/24/24 10:56 Tobacco use type Smokeless Tobacco 11/24/24 10:56 e-Cigarette/Vaping Use Currently Using 11/24/24 10:56 PHQ-9: PHQ-9 Score PHQ-9: Total score 12 11/24/24 11:02 Depression Screening Interpretation: Positive Thrive Assessment: Date of Thrive Assessment Date Thrive assessed 07/11/24 11/24/24 10:56 Const Other: General: no acute distress and well developed Nutritional Appearance: well nourished Orientation/consciousness: patient oriented x3 HENMT Head: Yes normocephalic and Yes atraumatic Eyes General: appearance normal, both eyes and all related structures Pupils: Equal, round and reactive pupils present EOM: EOMs intact bilaterally Resp Effort & Inspection: normal respiratory effort Auscultation: clear to auscultation bilaterally Cardio Rate: regular rate Rhythm: regular rhythm Heart sounds: S1 normal heart sound present, S2 normal heart sound present, no gallops, no murmurs and no rubs GI Palpation (GI): No Abdominal aortic bruit present, Soft to palpation, nontender, No hepatosplenomegaly present and No Rebound tenderness present Auscultation: normal bowel sounds General: Yes no CVA tenderness Back/Spine/Pelvis Back: no CVA tenderness Cervical Spine: cervical ROM normal and No Cervical spine tenderness Thoracic/Lumbar Spine: thoraco-lumbar ROM normal, No pain with thoraco-lumbar ROM, No thoracic spinal tenderness and No lumbar spinal tenderness Extrem General: Yes normal to inspection, No edema and No calf tenderness Skin General: warm and dry. Normal skin color. Normal skin turgor Neuro General: patient oriented x3, gait normal and no focal neuro deficit Cranial nerves: Yes Equal, round and reactive pupils present Cognition (Neuro): normal cognition Gait exam (Neuro): Normal gait present Sensory Exam: No Sensory deficit (Neuro) Psych Appearance: grossly normal Affect: normal affect Attitude: cooperative Thought process: Normal thought process present Coding Level of Care Code Est Pt Level 3 (99751) Diagnoses Anxiety F41.9 Depression F32.A Additional Codes GELY-7 Assessment Billing - GELY-7 Assessment Tool: GELY-7 Assessment 45473 ([id number]) PHQ-9 - 18069 - PHQ-9 Billing: Yes ([id number]) Assessment & Plan Assessment & Plan (1) Anxiety: Code(s): F41.9 - Anxiety disorder, unspecified Category: Medical Plan: Anxiety and depressive symptoms are generally well controlled. Work continues to be a significant stressor. PHQ-9 and GELY-7 scores revealed moderate depression and anxiety. Continue current treatment regimen. Routine exercise encouraged. Encouraged to establish with a therapist. Perform fasting lab work before next visit. Follow-up in 2 months for anxiety, depression, hyperlipidemia, and vitamin-D deficiency. Return sooner with symptoms or concerns. Verbalized understanding and agreed with the plan. (2) Depression: Code(s): F32.A - Depression, unspecified Category: Medical Plan: Plan as above. Orders: Orders Vitamin D 25-OH Total Today E55.9 - Vitamin D deficiency, unspecified Medications: Refilled bupropion HCl XL 300 mg PO QAM 30 tabs 3RF 30 days
[2024-11-24 10:58] VITALS: BP 126/76; PULSE 77; RESP 16; TEMP 36.6; O2SAT 98; BMI 33.7
--- OUTSIDE RECORDS SUMMARY | 2024-11-24 12:09 | XMS_ITS | Clinical Summary ---
Author Organization [facility] Address [address] [place] [address] Phone Care Team Providers Care Farmer Cash Grain Name Role Phone Unavailable Primary Care Provider [...]
--- OUTSIDE RECORDS SUMMARY | 2024-11-24 12:09 | XMS_ITS | Clinical Summary ---
Author Organization [facility] Address [address] [facility] [address] [place] [address] Phone Care Team Providers Care Elementary Teacher Name Role Phone Pcp, Unknown Primary Care [...] Devices Not on file Insurance [address] [place] [address] [facility] PPO [place] [address] PPO [facility] PPO EPO Member Subscriber Plan / Payer (Ef fective 2017-Present) Name:Zan Henderson Relation to Subscriber:Self Name:Zan Henderson Payer ID:[id number] ([facility]) Type:PPO Address: [address] PPO [facility] PPO EPO PPO [facility] PPO EPO Member Subscriber Plan / Payer (Ef fective 2017-Present) Name:Zan Henderson Relation to Subscriber:Self Name:Zan Henderson Payer ID:[id number] ([facility]) Type:PPO Address: [address] PPO [facility] PPO EPO Member Subscriber Plan / Payer (Ef fective 2017-Present) Name:Zan Henderson Relation to Subscriber:Self Name:Zan Henderson Payer ID:[id number] ([facility]) Type:PPO Address: [address] [facility] PPO [facility] PPO EPO PPO [facility] [place] [address] [place] [address] [place] [address] [place] [address] PPO EPO Care Teams Elementary Teacher Relationship Specialty Start Date End Date Pcp, Unknown PCP - General 02/01/22 Additional Source Comments The information contained in this document represents components of the legal health record. It is not the complete legal health record.[facility]
--- OUTSIDE RECORDS SUMMARY | 2024-11-24 12:09 | XMS_ITS | Encounter Summary ---
Author Organization [facility] Address [address] [facility] [address] [place] [address] Phone Care Team Providers Care Copper Roller Handler Printing Name Role Phone Pcp, Unknown Primary Care Provider Unavailabl e Encounter Details Date Type Department Care Team (Late st Contact Info) Description 02/01/2022 Procedure Pass [facility], Ct Scan - [address] [address] Social History Tobacco Use Types Packs/Day Years [...] 02/01/2022 2:52 PM Dara Burt RN * [place] Suicide Severity Rating Scale (Screener/Recent Self-Report) Question [...] on filedocumented in this encounter Care Teams Copper Roller Handler Printing Relationship Specialty Start Date End Date Pcp, Unknown PCP - General 02/01/22 documented as of this encounter Additional Source Comments The information contained in this document represents components of the legal health record. It is not the complete legal health record.[facility]
--- OUTSIDE RECORDS SUMMARY | 2024-11-24 12:09 | XMS_ITS | Encounter Summary ---
Author Organization [facility] Address [address] [place] [address] Phone Care Team Providers Care Advertisement Compositor Name Role Phone Abdullahi Chase MD Primary Care Provider [phone] Encounter Details Date Type Department Care Team (Late st Contact Info) Description 10/07/2016 Conversion Encounter [facility] - [address], [address] [place] [address] Abdullahi Chase MD [address] [place] [address] Social History Tobacco Use Types Packs/Day Years [...] on filedocumented in this encounter Care Teams Advertisement Compositor Relationship Specialty Start Date End Date Abdullahi Chase MD [address] [place] [address] PCP - General 04/21/16 09/15/20 documented as of this encounter
== END 2024-11-24 11:15 | disposition home or self-care (01) ==
LOC: HO.HMCFM 10:39
PROVIDERS: PCP Nurse Practitioner Family; Visit Provider Nurse Practitioner Family
DX: F41.9 Anxiety disorder, unspecified (principal); F32.A Depression, unspecified

== ENCOUNTER → 2024-11-24 10:38 | Outpatient (BNVA) | payer OTHER, SELFPAY | PROVIDERS: PCP Nurse Practitioner Family; Visit Provider Nurse Practitioner Family | DX: F41.9 Anxiety disorder, unspecified (principal); F32.A Depression, unspecified; E55.9 Vitamin D deficiency, unspecified | CPT/HCPCS: 96127 ==

== ENCOUNTER 2024-11-28 08:46 | Day surgery (SDC) | payer OTHER, SELFPAY ==
--- OUTSIDE RECORDS SUMMARY | 2024-11-23 16:50 | XMS_ITS | Clinical Summary ---
Author Organization [facility] Address [address] [place] [address] Phone Care Team Providers Care Esl Professor Name Role Phone Unavailable Primary Care Provider [...]
--- OUTSIDE RECORDS SUMMARY | 2024-11-23 16:50 | XMS_ITS | Encounter Summary ---
Author Organization [facility] Address [address] [place] [address] Phone Care Team Providers Care Freight Tallier Name Role Phone Abdullahi Chase MD Primary Care Provider [phone] Encounter Details Date Type Department Care Team (Late st Contact Info) Description 10/07/2016 Conversion Encounter [facility] - [address], [address] [place] [address] Abdullahi Chase MD [address] [place] [address] Social History Tobacco Use Types Packs/Day Years [...] on filedocumented in this encounter Care Teams Freight Tallier Relationship Specialty Start Date End Date Abdullahi Chase MD [address] [place] [address] PCP - General 04/21/16 09/15/20 documented as of this encounter
--- OUTSIDE RECORDS SUMMARY | 2024-11-23 16:51 | XMS_ITS | Clinical Summary ---
Author Organization [facility] Address [address] [facility] [address] [place] [address] Phone Care Team Providers Care Assistant Film Editor Name Role Phone Pcp, Unknown Primary Care [...] Devices Not on file Insurance [address] [place] [address] [facility] [place] [address] [place] [address] PPO [facility] PPO EPO Member Subscriber Plan / Payer (Ef fective 2017-Present) Name:Zan Henderson Relation to Subscriber:Self Name:Zan Henderson Payer ID:[id number] ([facility]) Type:PPO Address: [id number] PPO [facility] PPO EPO PPO [facility] PPO EPO Member Subscriber Plan / Payer (Ef fective 2017-Present) Name:Zan Henderson Relation to Subscriber:Self Name:Zan Henderson Payer ID:[id number] ([facility]) Type:PPO Address: [address] PPO [facility] PPO EPO Member Subscriber Plan / Payer (Ef fective 2017-Present) Name:Zan Henderson Relation to Subscriber:Self Name:Zan Henderson Payer ID:[id number] ([facility]) Type:PPO Address: [id number] [facility] PPO [facility] PPO EPO PPO [facility] [place] [address] [place] [address] [place] [address] [place] [address] PPO EPO Care Teams Assistant Film Editor Relationship Specialty Start Date End Date Pcp, Unknown PCP - General 02/01/22 Additional Source Comments The information contained in this document represents components of the legal health record. It is not the complete legal health record.[facility]
--- OUTSIDE RECORDS SUMMARY | 2024-11-23 16:51 | XMS_ITS | Encounter Summary ---
Author Organization [facility] Address [address] [facility] [address] [place] [address] Phone Care Team Providers Care Vehicle Upholsterer Name Role Phone Pcp, Unknown Primary Care Provider Unavailabl e Encounter Details Date Type Department Care Team (Late st Contact Info) Description 02/01/2022 Procedure Pass [facility], Ct Scan - [address] [address] Social History Tobacco Use Types Packs/Day Years [...] 02/01/2022 2:52 PM Dara Burt RN * [place] Suicide Severity Rating Scale (Screener/Recent Self-Report) Question [...] on filedocumented in this encounter Care Teams Vehicle Upholsterer Relationship Specialty Start Date End Date Pcp, Unknown PCP - General 02/01/22 documented as of this encounter Additional Source Comments The information contained in this document represents components of the legal health record. It is not the complete legal health record.[facility]
--- NOTE | 2024-11-27 11:44 | HO.ANESPROP2 ---
Documented by User: Claribel Stanton NP 11/27/24 11:45 HPI - Anesthesia Eval Consult details Narrative: 29yo M for Colonoscopy PMFSH Active Problems Active Problems: All Active Problems Bright red rectal bleeding (Acute) Vitamin D deficiency (Acute) Hyperbilirubinemia (Acute) Transaminitis (Acute) Hyperlipidemia (Acute) Insomnia (Acute) Colon cancer screening (Acute) Rectal bleeding (Acute) Eye exam, routine (Acute) Engages in vaping (Acute) Obesity (BMI 30-39.9) (Acute) Laboratory tests ordered as part of a complete physical exam (CPE) (Acute) Depression (Acute) Anxiety (Acute) Normal physical examination, routine (Acute) Past Medical History Medical History Alcoholism Depression Anxiety Headache History of gastroesophageal reflux (GERD) Torn ACL High blood pressure Asthma Family History Family History Father Alcohol abuse High blood pressure High cholesterol Paternal Grandfather Alcohol abuse High blood pressure High cholesterol Mother Anxiety Asthma Sister Anxiety Maternal Grandmother Thyroid disorder Breast cancer Maternal Grandfather Colon cancer Lung cancer Surgical History Surgical History S/P wisdom tooth extraction Social History Social History Housing: Apartment Patient Tobacco Use Status: Former Tobacco user Tobacco use type: Smokeless Tobacco e-Cigarette/Vaping Use: Currently Using Second Hand Smoke Exposure: No Substance Use Type: Marijuana Have you been hit, kicked, punched, or otherwise hurt by someone within the past year? 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 Current occupational exposures/hazards: No Cognitive needs: No Hearing needs: No Vision needs: No Meds Allergies Allergy/AdvReac Type Severity Reaction Status Date / Time No Known Allergies Allergy Verified 11/24/24 11:02 Assessment and Plan Assessment Anesthesia Assessment: Chart Reviewed Documented by User: Lorin Roger MD 11/28/24 11:42 [facility] Past Medical History Medical History Alcoholism Depression Anxiety Headache History of gastroesophageal reflux (GERD) Torn ACL High blood pressure Asthma Family History Family History Father Alcohol abuse High blood pressure High cholesterol Paternal Grandfather Alcohol abuse High blood pressure High cholesterol Mother Anxiety Asthma Sister Anxiety Maternal Grandmother Thyroid disorder Breast cancer Maternal Grandfather Colon cancer Lung cancer Family history of problems with anesthesia: No Surgical History Surgical History S/P wisdom tooth extraction History of Problems with Anesthesia: No Social History Social History Housing: Apartment Patient Tobacco Use Status: Former Tobacco user Tobacco use type: Smokeless Tobacco e-Cigarette/Vaping Use: Currently Using Second Hand Smoke Exposure: No Substance Use Type: Marijuana Have you been hit, kicked, punched, or otherwise hurt by someone within the past year? 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 Current occupational exposures/hazards: No Cognitive needs: No Hearing needs: No Vision needs: No Meds Allergies Allergy/AdvReac Type Severity Reaction Status Date / Time No Known Allergies Allergy Verified 11/24/24 11:02 Exam Airway Mallampati Class: II TM Dist: >3cm Neck ROM: Full Heart: rrr Lungs: cta Assessment and Plan Assessment Anesthesia Assessment: Anesthesia Plan Discussed Final Anesthetic Review Family History of Problems with Anesthesia: No History of Problems with Anesthesia: No NPO: Yes ASA Class: III (history of heavy substance use) Final Preanesthetic Review: No Changes in Pt Med Stat, Meds/Allgs Chart Reviewed, Consent Obtained/Reviewed and Anes Risks/Benef Reviewed Patient Risk: Intermediate Procedure Risk: Low Anesthetic Plan Anesthetic Plan: MAC: Disposition: Standard PACU
[2024-11-28 05:30] VITALS: BMI 33.6
[2024-11-28 09:49] VITALS: BP 146/99; PULSE 66; RESP 20; TEMP 36.9; O2SAT 99; BMI 33.0
[2024-11-28] MEDS: Lactated Ringers 1,000 ML 100 ML IVCONT (10:05)
--- NOTE | 2024-11-28 10:18 | MHC.SHP ---
Pre-Procedural Eval Section A - 24 Hr Update-Section A only Date of Service: 11/28/24 The patient is an INPATIENT: No The patient has been examined within 24 hours of the surgical procedure. The History & Physical has been completed within 30 days and I have reviewed it.: Yes Section B - Complete if H&P > 30 days Chief Complaint: Hemorrhage of anus and rectum Allergies: Allergies Allergy/AdvReac Type Severity Reaction Status Date / Time No Known Allergies Allergy Verified 11/24/24 11:02 Plan Diagnosis/Plan: Unchanged I have reviewed the history and physical and performed a pertinent physical examination on my patient. No changes have occurred unless specified. Time Spent With Patient Time: Total time managing care of this patient today ____ minutes.
--- NOTE | 2024-11-28 11:52 | P.OPN-COLO_ITS ---
Colonoscopy Operative Note Operative Note Date of Service: 11/28/24 Narrative: Procedure: Colonoscopy Indication: Rectal bleeding Endoscopist: Sandhya Hermosillo MD Anesthesia Provider: Dr Lorin Roger Anesthesia type: MAC Instrument: Olympus [id number]-[id number] Consent: Indication, risks vs benefits, and alternatives were discussed with the patient who gave written informed consent to proceed. EKG, pulse, pulse oximetry and blood pressure were monitored throughout the procedure. Please see anesthesia flowsheet. Procedure: The patient was brought to the procedure room and placed in the left lateral decubitus position. IV medications were administered by the anesthesia provider in attendance. A digital rectal exam was performed which was abnormal due to finding of hemorrhoids. A distal attachment cap was affixed to the tip of the colonoscope which was then inserted through the anus and advanced through the colon to the cecum at 75 cm,and terminal ileum. Appendiceal orifice and ileocecal valve were identified. Mucosa was carefully examined under high definition white light as the instrument was slowly withdrawn in a retrograde panoramic fashion. Retroflexion was performed in rectum. The procedure was not difficult. There were no immediate obvious complications. The quality of the prep was BBPS: 2+3+3 = adequate Withdrawal time 9 minutes. Limitations: No limitations. Findings: Mucosa: Normal to cecum and terminal ileum. Cold forceps biopsies were taken from the right, left colon and rectum. Protruding lesions: * Large internal hemorrhoids without stigmata of recent bleeding. Impression: 1. Normal colon and terminal ileum mucosa (biopsy) 2. External and internal hemorrhoids Recommendations: - intermittent rectal bleeding likely secondary to hemorrhoids as clinically suspected. - follow path results - commence asymptomatic colorectal cancer screening at 44 years of age
[2024-11-28 11:56] VITALS: BP 103/73; PULSE 84; RESP 16; TEMP 36.5; O2SAT 98
[2024-11-28 12:11] VITALS: BP 130/77; PULSE 77; RESP 16; TEMP 36.6; O2SAT 97
== END 2024-11-28 12:45 | disposition home or self-care (01) ==
PROVIDERS: PCP Nurse Practitioner Family; Visit Provider Internal Medicine
PROC: 0DJD8ZZ Inspection of Lower Intestinal Tract, Via Natural or Artificial Opening Endoscopic (ICD-10-PCS; CPT 45378; principal; 2024-11-28 11:30)
DX: K62.5 Hemorrhage of anus and rectum (principal); K64.4 Residual hemorrhoidal skin tags; K64.8 Other hemorrhoids
CPT/HCPCS: 45380; 88305; J2250; J2704

== ENCOUNTER → 2024-11-28 08:46 | Outpatient (BNV) | payer OTHER, SELFPAY | PROVIDERS: PCP Nurse Practitioner Family; Visit Provider Internal Medicine | DX: K62.5 Hemorrhage of anus and rectum (principal); K64.8 Other hemorrhoids | CPT/HCPCS: 45380 ==

== ENCOUNTER 2024-12-13 09:45 | Outpatient (AMB) | payer OTHER, SELFPAY ==
--- NOTE | 2024-12-13 09:50 | A.OFFVIS_ITS ---
Vital Signs 12/13/24 09:55 Height 6 ft 2 in Weight 253 lb 8.505 oz BMI 32.5 BP 128/82 Blood Pressure Location Lt brachial Position Sitting Pulse 72 Intake Visit Reasons: f/u colo rectal bleeding Intake Note: Zan presents in the office as a follow up colonoscopy. CC: States that he is not having concerns - states that he only bleeds when he sits on the toilet for too long!! Monomer Recovery Operator Required: No Allergies No Known Allergies Allergy (Verified 12/13/24 09:53) HPI Comments Details: 29 y.o M with no significant PMH who is here rectal bleeding. Reports intermittent rectal bleeding that started back when he was in high school and was told of hemorrhoids. Last month he also felt a hemorhhoid prolapse bleed a lot. Enough to bleed through the pants. This resolved spontaneously within a few days. No assoc abd pain, cramping, nausea or vomiting. Stool was somewhat mushy. Does not recall straining or pushing to defecate during those days. No anemia on labs. Has not taken any pharmacotherapy for this or sought surgical treatment. 11/28/24: [place]: 1. Normal colon and terminal ileum mucosa (biopsy) 2. External and internal hemorrhoids Path: A. Colon, right, biopsy: Colonic mucosa within normal limits. B. Colon, left, biopsy: Colonic mucosa within normal limits. C. Rectum, biopsy: Rectal mucosa within normal limits 12/13/24: Here for follow up post colo. He has since adjusted his diet by increasing fiber and reducing dairy to alleviate constipation. Bowel movements occur daily, does not have to strain. The patient uses MiraLax as needed. He has not had any further rectal bleeding and does not need to use steroid cream use. Biopsies returned normal. Advised to avoid heavy lifting to minimize strain. [facility] Medical History Alcoholism Depression Anxiety Headache History of gastroesophageal reflux (GERD) Torn ACL High blood pressure Asthma Surgical History (Updated 12/13/24 @ 09:52 by JESSICA Patel) Hx of colonoscopy S/P wisdom tooth extraction Family History Father Alcohol abuse High blood pressure High cholesterol Paternal Grandfather Alcohol abuse High blood pressure High cholesterol Mother Anxiety Asthma Sister Anxiety Maternal Grandmother Thyroid disorder Breast cancer Maternal Grandfather Colon cancer Lung cancer Social History Housing: Apartment Patient Tobacco Use Status: Former Tobacco user Tobacco use type: Smokeless Tobacco e-Cigarette/Vaping Use: Currently Using Second Hand Smoke Exposure: No Substance Use Type: Marijuana service: No Current occupational status: employed 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 Current occupational exposures/hazards: No Cognitive needs: No Hearing needs: No Vision needs: No Review of Systems Const All systems reviewed & are unremarkable except as noted in HPI and below Physical Exam Exam Exam: No apparent distress Nonicteric Abdomen soft, nondistended Alert and oriented x3, normal gait Vital Signs: Last Vital Signs Pulse 72 12/13/24 09:55 BP 128/82 12/13/24 09:55 BMI result Body Mass Index 32.5 Assessment & Plan Assessment & Plan (1) Bright red rectal bleeding: Code(s): K62.5 - Hemorrhage of anus and rectum Category: Medical (2) Hemorrhoids: Code(s): K64.9 - Unspecified hemorrhoids Category: Medical Qualifiers: Hemorrhoid type: unspecified Qualified Code(s): K64.9 - Unspecified hemorrhoids Plan [place] results reviewed rectal bleeding likely 2/2 hemorrhoidal bleeding. This has now resolved since pt has been incorporating more fiber and not spending a long time sitting on the toilet using his phone. Plan: - Avoid constipation and straining. Cont OTC miralax as needed - avoid lifting heavy weights - Cont daily fiber intake - If has recurrent rectal bleeding can use anusol again - Commence asymptomatic colorectal ca screening at age 44. Follow up PRN Pt was informed and consented to use of ambient scribe. Coding Level of Care Code Est Pt Level 4 (43023) Diagnoses Bright red rectal bleeding K62.5 Hemorrhoids K64.9 Hemorrhoid type: unspecified
[2024-12-13 09:55] VITALS: BP 128/82; PULSE 72; BMI 32.5
--- OUTSIDE RECORDS SUMMARY | 2024-12-13 11:14 | XMS_ITS | Encounter Summary ---
Author Organization [facility] Address [address] [facility] [address] [place] [address] Phone Care Team Providers Care Replanting Machine Operator Name Role Phone Pcp, Unknown Primary Care Provider Unavailabl e Encounter Details Date Type Department Care Team (Late st Contact Info) Description 02/01/2022 Procedure Pass [facility], Ct Scan - [address] [address] Social History Tobacco Use Types Packs/Day Years [...] 02/01/2022 2:52 PM Dara Burt RN * [place] Suicide Severity Rating Scale (Screener/Recent Self-Report) Question [...] on filedocumented in this encounter Care Teams Replanting Machine Operator Relationship Specialty Start Date End Date Pcp, Unknown PCP - General 02/01/22 documented as of this encounter Additional Source Comments The information contained in this document represents components of the legal health record. It is not the complete legal health record.[facility]
--- OUTSIDE RECORDS SUMMARY | 2024-12-13 11:14 | XMS_ITS | Clinical Summary ---
Author Organization [facility] Address [address] [place] [address] Phone Care Team Providers Care Control Valve Mechanic Name Role Phone Unavailable Primary Care Provider [...] Additional history exists COVID-19 Vaccine ( - 2024- season) 2024 DTaP,Tdap,and Td Vaccines (8 - [...]
--- OUTSIDE RECORDS SUMMARY | 2024-12-13 11:14 | XMS_ITS | Encounter Summary ---
Author Organization [facility] Address [address] [place] [address] Phone Care Team Providers Care Vp Compliance Name Role Phone Abdullahi Chase MD Primary Care Provider [phone] Encounter Details Date Type Department Care Team (Late st Contact Info) Description 10/07/2016 Conversion Encounter [facility] - [address], [address] [place] [address] Abdullahi Chase MD [address] [place] [address] Social History Tobacco Use Types Packs/Day Years [...] on filedocumented in this encounter Care Teams Vp Compliance Relationship Specialty Start Date End Date Abdullahi Chase MD [address] [place] [address] PCP - General 04/21/16 09/15/20 documented as of this encounter
--- OUTSIDE RECORDS SUMMARY | 2024-12-13 11:14 | XMS_ITS | Clinical Summary ---
Author Organization [facility] Address [address] [facility] [address] [place] [address] Phone Care Team Providers Care Geoduck Diver Name Role Phone Pcp, Unknown Primary Care [...] Devices Not on file Insurance [address] [place] [address] [facility] PPO EPO Member Subscriber Plan / Payer (Ef fective 2017-Present) Name:Zan Henderson Relation to Subscriber:Self Name:Zan Henderson Payer ID:[id number] (NAIC) Type:PPO Address: [facility] [id number] PPO [facility] PPO EPO Member Subscriber Plan / Payer (Ef fective 2017-Present) Name:Zan Henderson Relation to Subscriber:Self Name:Zan Henderson Payer ID:[id number] ([facility]) Type:PPO Address: [id number] PPO [facility] PPO EPO UNITED PPO [facility] PPO EPO Member Subscriber Plan / Payer (Ef fective 2017-Present) Name:Zan Henderson Relation to Subscriber:Self Name:Zan Henderson Payer ID:[id number] ([facility]) Type:PPO Address: [id number] PPO [facility] PPO EPO UNITED PPO [facility] PPO EPO PPO [facility] PPO EPO [facility] PPO EPO [facility] PPO EPO Care Teams Geoduck Diver Relationship Specialty Start Date End Date Pcp, Unknown PCP - General 02/01/22 Additional Source Comments The information contained in this document represents components of the legal health record. It is not the complete legal health record.[facility]
== END 2024-12-13 11:50 | disposition home or self-care (01) ==
LOC: HO.HGI 09:46
PROVIDERS: PCP Nurse Practitioner Family; Visit Provider Internal Medicine
DX: K62.5 Hemorrhage of anus and rectum (principal); K64.9 Unspecified hemorrhoids
CPT/HCPCS: 99214

== ENCOUNTER 2025-01-29 10:28 | Outpatient (REF) | payer OTHER, SELFPAY ==
--- OUTSIDE RECORDS SUMMARY | 2025-01-29 13:13 | XMS_ITS | Encounter Summary ---
Author Organization [facility] Address [address] [place] [address] Phone Care Team Providers Care Material Hauler Name Role Phone Abdullahi Chase MD Primary Care Provider [phone] Encounter Details Date Type Department Care Team (Late st Contact Info) Description 10/07/2016 Conversion Encounter [facility] - [address], [address] [place] [address] Abdullahi Chase MD [address] [place] [address] Social History Tobacco Use Types Packs/Day Years [...] on filedocumented in this encounter Care Teams Material Hauler Relationship Specialty Start Date End Date Abdullahi Chase MD [address] [place] [address] PCP - General 04/21/16 09/15/20 documented as of this encounter
--- OUTSIDE RECORDS SUMMARY | 2025-01-29 13:14 | XMS_ITS | Clinical Summary ---
Author Organization [facility] Address [address] [facility] [address] [place] [address] Phone Care Team Providers Care Machinist/Machine Builder Name Role Phone Pcp, Unknown Primary Care [...] Devices Not on file Insurance [address] [place] [address] [facility] PPO EPO Member Subscriber Plan / Payer (Ef fective 2017-Present) Name:Zan Henderson Relation to Subscriber:Self Name:Zan Henderson Payer ID:[id number] (NAIC) Type:PPO Address: [facility] [id number] PPO [facility] PPO EPO Member Subscriber Plan / Payer (Ef fective 2017-Present) Name:Zan Henderson Relation to Subscriber:Self Name:Zan Henderson Payer ID:[id number] ([facility]) Type:PPO Address: [id number] PPO [facility] PPO EPO UNITED PPO [facility] PPO EPO Member Subscriber Plan / Payer (Ef fective 2017-Present) Name:Zan Henderson Relation to Subscriber:Self Name:Zan Henderson Payer ID:[id number] ([facility]) Type:PPO Address: [id number] PPO [facility] PPO EPO UNITED PPO [facility] PPO EPO PPO [facility] PPO EPO [facility] PPO EPO [facility] PPO EPO Care Teams Machinist/Machine Builder Relationship Specialty Start Date End Date Pcp, Unknown PCP - General 02/01/22 Additional Source Comments The information contained in this document represents components of the legal health record. It is not the complete legal health record.[facility]
--- OUTSIDE RECORDS SUMMARY | 2025-01-29 13:14 | XMS_ITS | Encounter Summary ---
Author Organization [facility] Address [address] [facility] [address] [place] [address] Phone Care Team Providers Care Concrete Stone Fabricator Name Role Phone Pcp, Unknown Primary Care Provider Unavailabl e Encounter Details Date Type Department Care Team (Late st Contact Info) Description 02/01/2022 Procedure Pass [facility], Ct Scan - [address] [address] Social History Tobacco Use Types Packs/Day Years [...] 02/01/2022 2:52 PM Dara Burt RN * [place] Suicide Severity Rating Scale (Screener/Recent Self-Report) Question [...] on filedocumented in this encounter Care Teams Concrete Stone Fabricator Relationship Specialty Start Date End Date Pcp, Unknown PCP - General 02/01/22 documented as of this encounter Additional Source Comments The information contained in this document represents components of the legal health record. It is not the complete legal health record.[facility]
--- OUTSIDE RECORDS SUMMARY | 2025-01-29 13:14 | XMS_ITS | Clinical Summary ---
Author Organization [facility] Address [address] [place] [address] Phone Care Team Providers Care International First Officer Name Role Phone Unavailable Primary Care Provider [...]
[2025-01-29 15:10] LABS: Cholesterol 183 mg/dL (<200); HDL Cholesterol 37 mg/dL (>40); Triglycerides 306 mg/dL (<150)
== END 2025-01-29 10:29 | disposition home or self-care (01) ==
LOC: HO.WFDLDS 10:28
PROVIDERS: Visit Provider Nurse Practitioner Family
DX: E78.5 Hyperlipidemia, unspecified (principal); E55.9 Vitamin D deficiency, unspecified
CPT/HCPCS: 36415; 80061; 82306

== ENCOUNTER 2025-02-06 10:33 | Outpatient (AMB) | payer OTHER, SELFPAY ==
--- NOTE | 2025-02-06 10:43 | A.OFFPC_ITS ---
Vital Signs 02/06/25 11:09 Height 6 ft 2 in Weight 272 lb 6 oz BMI 35.0 BP 141/80 H Blood Pressure Location Rt brachial Position Sitting Respiration 16 Pulse 88 Pulse Source Pulse Oximeter Temp 98 F Temp Source Oral Pulse Oximetry (%) 98 Oxygen Delivery Method Room Air Intake Visit Reasons: 2 mos anx, dep, HLD, vit d def Intake Note: patient here for 2month follow up on depression, HLD , Vit d def Checker Dump Grounds Required: No Allergies No Known Allergies Allergy (Verified 02/06/25 11:14) Medication List - Last Reconciled 02/06/25 by Junie Lo CNP bupropion HCl XL 300 mg PO QAM 30 days cholecalciferol (vitamin D3) (Vitamin D3) 25 mcg PO DAILY 90 days hydroxyzine HCl 25 mg PO TID PRN Tobacco use date assessed: 02/06/25 Dental Screening Dental Screen Date: 02/06/25 Did you have a dental visit in the last 12 months?: No Did you have a dental problem in the last 6 months where you did not have access to dental care?: No Was dental information given to patient?: Patient has dentist HPI HPI Comments History of Present Illness Details 29-year-old male presents for hyperlipid emia, vitamin-D deficiency, anxiety, and depression follow-up. He admits to taking his medications as prescribed without adverse reactions. He notes he has been making healthy lifestyle choices. He drinks 1-2 beers 3-4 times weekly, for a total of 9-12 beers weekly; has been drinking that much in the last 2-3 months. He notes that he noticed a little shift in my mood, and has been a little down lately, which he states is likely due to the weather. He denies SI/HI/AVH. PFSH Medical History Alcoholism Depression Anxiety Headache History of gastroesophageal reflux (GERD) Torn ACL High blood pressure Asthma Surgical History (Updated 12/13/24 @ 09:52 by JESSICA Patel) Hx of colonoscopy S/P wisdom tooth extraction Family History Father Alcohol abuse High blood pressure High cholesterol Paternal Grandfather Alcohol abuse High blood pressure High cholesterol Mother Anxiety Asthma Sister Anxiety Maternal Grandmother Thyroid disorder Breast cancer Maternal Grandfather Colon cancer Lung cancer Social History Housing: Apartment Patient Tobacco Use Status: Former Tobacco user Tobacco use type: Smokeless Tobacco e-Cigarette/Vaping Use: Currently Using Second Hand Smoke Exposure: No Substance Use Type: Marijuana service: No Current occupational status: employed 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 1. Little interest or pleasure in doing things: more than half the days 2. Feeling down, depressed, or hopeless: more than half the days 3. Trouble falling or staying asleep, or sleeping too much: more than half the days 4. Feeling tired or having little energy: more than half the days 5. Poor appetite or overeating: more than half the days 6. Feeling bad about yourself - or that you are a failure or have let yourself or your family down: more than half the days 7. Trouble concentrating on things, such as reading the newspaper or watching television: several days 8. Moving or speaking so slowly that other people could have noticed. Or the opposite - being so fidgety or restless that you have been moving around a lot more than usual: not at all 9. Thoughts that you would be better off or of hurting yourself in some way: not at all Total score: 13 Depression Screening Interpretation: Positive Depression Screening Follow-up: Existing condition and In treatment Depression Screening Done: Yes 45633 - PHQ-9 Billing: Yes Source: Developed by Drs. Du Simons, Aicha Anaya, Sandro Almanza and colleagues, with an educational cristobal from [employer]. Thrive Questionnaire Date Thrive assessed: 07/11/24 I am a: Patient What is your living situation today?: I have a steady place to live Within the past 12 months, did the food you bought not last and you didn't have the money to get more?: Sometimes True Within the past 12 months, did you worry whether your food would run out before you got money to buy more?: Often true Do you have trouble paying for medicines?: No Do you have trouble getting transportation to medical appointments?: No Do you have trouble paying your heating and electricity bill?: No Do you have trouble taking care of your child, family member or friend?: No Do you have trouble with day-to-day activities such as bathing, preparing meals, shopping, managing finances, etc.?: Yes Are you currently unemployed and looking for a job?: No Are you interested in more education?: Yes Please select the resources that you would like help with: None THRIVE Score: 2 GELY-7 AMB Questionnaire GELY-7 Date GELY - 7 assessed: 02/06/25 Feeling nervous, anxious, or on edge: 2 = More than half the days Not being able to stop or control worryin = More than half the days Worrying too much about different things: 2 = More than half the days Trouble relaxin = More than half the days Being so restless that it is hard to sit still: 1 = Several days Becoming easily annoyed or irritable: 2 = More than half the days Feeling afraid as if something awful might happen: 2 = More than half the days Total GELY-7 score (0-4 normal; 5-9 mild; 10-14 moderate; 15-21 severe): 13 Source: Developed by Drs. Du Simons, Aicha Anaya, Sandro Almanza and colleagues, with an educational cristobal from [employer]. GELY-7 Assessment Billing GELY-7 Assessment Tool: GELY-7 Assessment 48101 Review of Systems Const Details: Const Denies chills, Denies fatigue, Denies fever(s), Denies headache(s) and Denies weakness ENT Denies dizziness and Denies headache(s) Card Denies chest pain, Denies lightheadedness, Denies dyspnea and Denies other (Palpitations) Resp Denies cough, Denies dyspnea, Denies wheezing and Denies other ( shortness of breath) GI Denies abdominal pain, Denies melena, Denies hematochezia, Denies change in bowel habits, Denies dyspepsia and Denies nausea Denies hematuria and Denies dysuria Musc Denies abnormal gait, Denies myalgias, Denies arthralgias, Denies numbness and Denies tingling Skin/Breast Denies rash, Denies unusual bruising and Denies wounds Neuro Denies abnormal gait, Denies dizziness, Denies headache(s), Denies memory loss, Denies numbness, Denies Sensory deficit (Neuro), Denies tingling and Denies weakness Psych Reports anxiety, Reports depression, Denies memory loss Endo Denies cold intolerance, Denies fatigue, Denies heat intolerance, Denies polydipsia and Denies polyuria Aller/Immun Denies wheezing Physical exam (Primary Care) Vital Signs: Last Vital Signs Temp 98 F 02/06/25 11:09 Pulse 88 02/06/25 11:09 Resp 16 02/06/25 11:09 BP 141/80 H 02/06/25 11:09 Pulse Ox 98 02/06/25 11:09 Oxygen Delivery Method Room Air 02/06/25 11:09 BMI result Body Mass Index 35.0 Tobacco/Smoking Status: Tobacco use Status Tobacco use date assessed 02/06/25 02/06/25 11:09 Patient Tobacco Use Status Former Tobacco user 02/06/25 10:45 Tobacco use type Smokeless Tobacco 02/06/25 10:45 e-Cigarette/Vaping Use Currently Using 02/06/25 10:45 Depression Screening Interpretation: Positive Depression Screening Follow-up: Existing condition and In treatment Thrive Assessment: Date of Thrive Assessment Date Thrive assessed 07/11/24 02/06/25 10:45 Const Other: General: no acute distress and well developed Nutritional Appearance: well nourished Orientation/consciousness: patient oriented x3 HENMT Head: Yes normocephalic and Yes atraumatic Eyes General: appearance normal, both eyes and all related structures Pupils: Equal, round and reactive pupils present EOM: EOMs intact bilaterally Resp Effort & Inspection: normal respiratory effort Auscultation: clear to auscultation bilaterally Cardio Rate: regular rate Rhythm: regular rhythm Heart sounds: S1 normal heart sound present, S2 normal heart sound present, no gallops, no murmurs and no rubs Extrem General: Yes normal to inspection, No edema and No calf tenderness Skin General: warm and dry. Normal skin color. Normal skin turgor Neuro General: patient oriented x3, gait normal and no focal neuro deficit Cranial nerves: Yes Equal, round and reactive pupils present Cognition (Neuro): normal cognition Gait exam (Neuro): Normal gait present Sensory Exam: No Sensory deficit (Neuro) Psych Appearance: grossly normal Affect: normal affect Mood: Calm Attitude: cooperative Thought process: Normal thought process present Coding Level of Care Code Est Pt Level 4 (68762) Diagnoses Hyperlipidemia E78.5 Vitamin D deficiency E55.9 Anxiety F41.9 Depression F32.A Additional Codes GELY-7 Assessment Billing - GELY-7 Assessment Tool: GELY-7 Assessment 80353 ([id number]) PHQ-9 - 12012 - PHQ-9 Billing: Yes ([id number]) Assessment & Plan Assessment & Plan (1) Hyperlipidemia: Code(s): E78.5 - Hyperlipidemia, unspecified Category: Medical Plan: Recent triglycerides level is significantly elevated, 306, previous level was 145, HDL level is slightly low, 37; total cholesterol and LDL levels are normal. Advised to limit foods high in saturated fat and avoid foods high in trans fat. Routine exercise encouraged. Advised to cut down or avoid alcohol intake. No more than 2 drinks daily or 5 weekly. Fast for 10-12 hours, may drink water, and perform lipid panel blood work a few days before next visit. Follow-up in 2-3 months for transfer of care with a new provider within the practice. Return sooner with symptoms or concerns. Verbalized understanding and agreed with the plan. (2) Vitamin D deficiency: Code(s): E55.9 - Vitamin D deficiency, unspecified Category: Medical Plan: Recent vitamin-D level is normal, 30.2. Continue current treatment regimen. Verbalized understanding and agreed with the plan. (3) Anxiety: Code(s): F41.9 - Anxiety disorder, unspecified Category: Medical Plan: Patient state that he noticed a little shift in my mood, and has been a little down lately, which he states is likely due to the weather. He denies SI/HI/AVH. He drinks a total of 9-12 beers weekly and has been drinking that much in the last 2-3 months. Instructed on the negative impact of excessive alcohol intake on his mood and psychotropic medications and encouraged to cut down or avoid drinking alcohol. Continue current treatment regimen. Follow-up as planned or return sooner with symptoms or concerns. Verbalized understanding and agreed with the plan. (4) Depression: Code(s): F32.A - Depression, unspecified Category: Medical Plan: Plan as above. Orders: Orders Lipid Panel 2 Months E78.5 - Hyperlipidemia, unspecified
[2025-02-06 11:09] VITALS: BP 141/80; PULSE 88; RESP 16; TEMP 36.6; O2SAT 98; BMI 35.0
== END 2025-02-06 11:23 | disposition home or self-care (01) ==
LOC: HO.HMCFM 10:34
PROVIDERS: PCP Nurse Practitioner Family; Visit Provider Nurse Practitioner Family
DX: E78.5 Hyperlipidemia, unspecified (principal); E55.9 Vitamin D deficiency, unspecified; F41.9 Anxiety disorder, unspecified; F32.A Depression, unspecified

== ENCOUNTER → 2025-02-06 10:33 | Outpatient (BNVA) | payer OTHER, SELFPAY | PROVIDERS: PCP Nurse Practitioner Family; Visit Provider Nurse Practitioner Family | DX: Z13.31 Encounter for screening for depression (principal); Z13.39 Encounter for screening examination for other mental health and behavioral disorders | CPT/HCPCS: 96127 ==